=== PATIENT | female | born 1945 | race Caucasian/White ===

== ENCOUNTER 2017-09-26 05:45 | Emergency (ER) | payer MEDICARE, OTHER, MEDICAID ==
[2017-09-26 05:51] VITALS: BP 130/60
[2017-09-26] MEDS ORDERED: HYDROmorphone 1 MG/ML Syringe IVPUSH ONE ×2 (06:01→06:28)
[2017-09-26] MEDS ORDERED: Sodium Chloride 0.9% 10 ML Syringe FLUSH PRN (06:02)
[2017-09-26] MEDS ORDERED: oxyCODONE 5 MG Tab PO ONE (07:06)
--- NOTE | 2017-09-27 00:09 | EDM.PDOC ---
ED HPI GENERAL MEDICAL PROBLEM - General Chief Complaint: Upper Extremity Injury/Pain Stated Complaint: left wrist pain Time Seen by Provider: 09/26/17 05:58 Source of Information: Reports: Patient, EMS History Limitations: Reports: No Limitations - History of Present Illness INITIAL COMMENTS - FREE TEXT/NARRATIVE: States she fell getting to use the bathroom, injuring her L wrist. She denies striking her head. Denies any neck pain. States that her only discomfort is located in her L wrist. Pt. states that she has a history of osteoporosis and frequent falls. She has sustained fractures to her humerus in the past as well. She states that she has had numerous joint replacements as well. She states that she is experiencing muscle spasms in her L hand. She is a heavy utilizer of opiates for her chronic medical conditions such as fibromyalgia. Location: Reports: Upper Extremity, Left Quality: Reports: Throbbing Severity: Severe Improves with: Reports: Rest Worsens with: Reports: Movement Treatments BUSHEL GIRL: Reports: Other Medication(s) (took oxycodone prior to calling 911) Left Arm Pain Score (Numeric/FACES): 10 - Related Data Allergies Allergy/AdvReac Type Severity Reaction Status Date / Time salsalate [Salsalate] Allergy Other Verified 09/26/17 22:39 codeine AdvReac Nausea and Verified 09/26/17 22:39 Vomiting cyclobenzaprine HCl AdvReac Fatigue Verified 09/26/17 22:39 [From Flexeril] fentanyl AdvReac Nausea and Verified 09/26/17 22:39 Vomiting Sulfa (Sulfonamide AdvReac Body Aches Verified 09/26/17 22:39 Antibiotics) Home Meds: Home Meds Calcium Carb/Mag Ox/Zinc Gluc [Epgwsix-Duxnccvql-Ihws] 1 each PO DAILY 11/11/13 [History] Carbidopa/Levodopa [Carbidopa-Levo ER 25-100] 1 tab PO BEDTIME 11/11/13 [History ] Cholecalciferol (Vitamin D3) [Vitamin D3] 1,000 units PO DAILY 11/11/13 [History ] Diltiazem IR [Cardizem] 30 mg PO TID 11/11/13 [History] Fluticasone Propionate [Flonase] 16 gm .XX DAILY 11/11/13 [History] Furosemide [Lasix] 40 mg PO DAILY 11/11/13 [History] Gabapentin [Neurontin] 100 mg PO BID 11/11/13 [History] Gabapentin [Neurontin] 300 mg PO BEDTIME 11/11/13 [History] Menthol/Methyl Salicylate [Thera-Gesic Analgesic Cream] 1 applic TOP TID PRN [History] Metoprolol Succinate [Toprol XL] 25 mg PO DAILY 11/11/13 [History] Omeprazole 20 mg PO ACBREAKFAST 11/11/13 [History] metFORMIN [Glucophage] 500 mg PO BIDM 11/11/13 [History] Aspirin [Halfprin] 81 mg PO DAILY #0 11/24/13 [Rx] Fish Oil/[place]-3 Fatty Acids [Fish Oil] 1 cap PO DAILY 01/22/15 [History] DULoxetine [Cymbalta] 60 mg PO BID 03/19/15 [History] Flaxseed Oil [Flaxseed] 1,000 mg PO DAILY 03/19/15 [History] Fluticasone Propionate [Fluticasone Propionate [place]] 16 gm .XX BEDTIME PRN 02/26 [History] Pravastatin Sodium [Pravastatin (Pravachol)] 40 mg PO BEDTIME 03/19/15 [History] Nitroglycerin [IJP: Nitroglycerin] 0.4 mg SL ASDIRECTED PRN 04/23/16 [History] Nortriptyline 25 mg PO BEDTIME 04/23/16 [History] Zinc Gluconate-Zinc Picolinate [Zinc] 30 mg PO DAILY 04/23/16 [History] oxyCODONE 10 mg PO BID PRN 04/23/16 [History] Acetaminophen [Tylenol Extra Strength] 2 tab PO Q8H PRN 04/24/16 [History] Ondansetron HCl [Zofran] 4 mg PO TID PRN 09/26/17 [History] rOPINIRole HCl [Requip] 0.25 mg PO BEDTIME 09/26/17 [History] Past Medical History HEENT History: Reports: Allergic Rhinitis, Macular Degeneration Cardiovascular History: Reports: Angina, Heart Failure, High Cholesterol, Hypertension, SOB on Exertion Other Cardiovascular History: VENOUS INSUFFICIENCY, LOWER EXTREMITIES. MURMER. MITRAL REGURGITATION. 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 ESOPHAGEAL DYSMOTILITY. 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 SHOULDER JOINT DISLOCATION. COMPLICATION OF INTERNAL ORTHOPEDIC PROSTHETIC DEVICE, IMPLANT, OR GRAFT. RIGHT SHOULDER PAIN. ARTHRALGIA OF TEMPOROMANDIBULAR JOINT. MUSCLE CRAMPS. CHRONIC PAIN SYNDROME Neurological History: Reports: Neuropathy, Diabetic Other Neuro History: RLS Psychiatric History: Reports: Anxiety, Depression Other Psychiatric History: MILD COGNITIVE IMPAIRMENT Endocrine/Metabolic History: Reports: Diabetes, Type II, Obesity/BMI 30+ Hematologic History: Reports: None Immunologic History: Reports: None Oncologic (Cancer) History: Reports: Basal Cell Carcinoma Other Dermatologic History: HX cellulitis to Left shoulder - Past Surgical History Head Surgeries/Procedures: Reports: None HEENT Surgical History: Reports: Cataract Surgery Musculoskeletal Surgical History: Reports: Hip Replacement, Joint Replacement, Knee Replacement, Shoulder Surgery Dermatological Surgical History: Reports: Skin Biopsy Social & Family History - Tobacco Use Smoking Status *Q: Former Smoker Years of Tobacco use: 15 Used Tobacco, but Quit: Yes Month Tobacco Last Used: 604 Second Hand Smoke Exposure: No - Recreational Drug Use Recreational Drug Use: No Drug Use in Last 12 Months: No Review of Systems - Review of Systems Review Of Systems: See Below Constitutional: Reports: No Symptoms Eyes: Reports: No Symptoms, Blurred Vision, Vision Change Ears: Reports: No Symptoms, Dizziness, Tinnitus Nose: Reports: No Symptoms Mouth/Throat: Reports: No Symptoms Respiratory: Reports: No Symptoms Cardiovascular: Reports: No Symptoms. Denies: Chest Pain, Edema, Irregular Heart Rate, Lightheadedness GI/Abdominal: Reports: No Symptoms Musculoskeletal: Reports: Joint Pain (left wrist) Skin: Reports: No Symptoms Neurological: Reports: No Symptoms ED EXAM, GENERAL - Physical Exam Exam: See Below Exam Limited By: No Limitations General Appearance: Alert, WD/WN Head: Atraumatic, Normocephalic Neck: Normal Inspection, Supple, Non-Tender, Full Range of Motion Respiratory/Chest: No Respiratory Distress, Lungs Clear, Normal Breath Sounds, No Accessory Muscle Use, Chest Non-Tender Cardiovascular: Normal Peripheral Pulses, Regular Rate, Rhythm, No Edema, No Gallop, No JVD, No Murmur, No Rub GI/Abdominal: Normal Bowel Sounds, Soft, Non-Tender, No Organomegaly, No Distention, No Abnormal Bruit, No Mass Extremities: Normal Inspection, Arm Pain, Other (deformity to L wrist) Neurological: Alert, Oriented, CN II-XII Intact, Normal Cognition, Normal Gait, Normal Reflexes, No Motor/Sensory Deficits Skin Exam: Warm, Dry, Intact, Normal Color, No Rash Course - Vital Signs Last Recorded V/S: Last Vital Signs Temp 36.8 C 09/26/17 05:48 Pulse 83 09/26/17 05:48 Resp 20 09/26/17 05:48 BP 130/60 09/26/17 05:48 Pulse Ox 96 09/26/17 05:48 - Orders/Labs/Meds Orders: Active Orders 24 hr Category Date Time Status Wrist 2V Lt [CR] Stat Exams 09/26/17 06:31 Taken Wrist Comp Min 3V Lt [CR] Stat Exams 09/26/17 06:00 Taken Peripheral IV Insertion Adult [OM.PC] Routine Oth 09/26/17 06:03 Ordered Meds: Medications Discontinued Medications Generic Name Dose Route Start Last Admin Trade Name Freq PRN Reason Stop Dose Admin Hydromorphone HCl 1 mg 09/26/17 06:01 09/26/17 06:07 Dilaudid IVPUSH 09/26/17 06:02 1 mg ONETIME ONE Administration Hydromorphone HCl 1 mg 09/26/17 06:28 09/26/17 06:37 Dilaudid IVPUSH 09/26/17 06:29 1 mg ONETIME ONE Administration Oxycodone HCl 10 mg 09/26/17 07:06 09/26/17 07:13 Oxycodone PO 09/26/17 07:07 10 mg ONETIME ONE Administration Sodium Chloride 10 ml 09/26/17 06:02 Saline Flush FLUSH ASDIRECTED PRN Keep Vein Open Departure - Departure Time of Disposition: 06:15 Disposition: Home, Self-Care 01 Condition: Good Clinical Impression: Radius fracture - Discharge Information Instructions: Wrist Fracture Treated With Immobilization, [id number] Referrals: PCP,Unobtain [Primary Care Provider] - Forms: ED Department Discharge Additional Instructions: Follow-up with [facility] next week ([phone]). I spoke with Dr. Arriaga who wants you to follow-up. Increase oxycodone to 1-2 tablets every 4-6 hours as needed for pain. Keep splint on. - My Orders Last 24 Hours: My Active Orders 09/26/17 06:00 Wrist Comp Min 3V Lt [CR] Stat 09/26/17 06:03 Peripheral IV Insertion Adult [OM.PC] Routine 09/26/17 06:31 Wrist 2V Lt [CR] Stat - Assessment/Plan Last 24 Hours: My Active Orders 09/26/17 06:00 Wrist Comp Min 3V Lt [CR] Stat 09/26/17 06:03 Peripheral IV Insertion Adult [OM.PC] Routine 09/26/17 06:31 Wrist 2V Lt [CR] Stat
== END 2017-09-26 07:50 | disposition home or self-care (01) ==
LOC: VM.ED 05:45
DX: S52.502A Unspecified fracture of the lower end of left radius, initial encounter for closed fracture (principal); I11.0 Hypertensive heart disease with heart failure; I50.9 Heart failure, unspecified; E78.00 Pure hypercholesterolemia, unspecified; E11.9 Type 2 diabetes mellitus without complications; E66.9 Obesity, unspecified; Z87.891 Personal history of nicotine dependence; Z88.2 Allergy status to sulfonamides; Z88.8 Allergy status to other drugs, medicaments and biological substances; Z79.899 Other long term (current) drug therapy; Z79.82 Long term (current) use of aspirin; W19.XXXA Unspecified fall, initial encounter
CPT/HCPCS: 29125; 73100; 73110; 96374; 96376; 99284; A9270; J1170

== ENCOUNTER 2017-09-26 22:31 | Emergency (ER) | payer MEDICARE, OTHER, MEDICAID ==
[2017-09-26 22:39] VITALS: BP 156/64
[2017-09-26] MEDS ORDERED: oxyCODONE 5 MG Tab PO ONE (23:09)
[2017-09-26] MEDS ORDERED: Ondansetron 4 MG Tab.DIS PO ONE (23:10)
--- NOTE | 2017-09-26 23:54 | EDM.PDOC ---
ED HPI GENERAL MEDICAL PROBLEM - General Chief Complaint: Upper Extremity Injury/Pain Stated Complaint: uncontrolled pain Time Seen by Provider: 09/26/17 22:50 Source of Information: Reports: Patient History Limitations: Reports: No Limitations - History of Present Illness INITIAL COMMENTS - FREE TEXT/NARRATIVE: Pt. presents to the ER with continued L wrist pain. Pt. states that she has been taking 25 mg. of oxycodone every 4 hours and she is not having any improvement in her discomfort. Pt. sustained a distal radius fracture of her L wrist that was extremely ustable with dislocation. Attempt to reduce the wrist was difficult due to instablility of the fracture. Pt. has been placed in a posterior short arm fiberglas splint. Pt. takes oxycodone throughout the day for chronic pain issues. She was discharged from ER this AM and her oral oxycodone was increased to 20mg every 4 hours. Pt. states that her pain was intolerable and never improved to less than "9" on 1-10 severity scale. Pt. subsequently presents back to the ER with compaints of continued pain. She had called ER several times today with concerns about her continued pain. Left Wrist Pain Score (Numeric/FACES): 9 - Related Data Allergies Allergy/AdvReac Type Severity Reaction Status Date / Time salsalate [Salsalate] Allergy Other Verified 09/26/17 22:39 codeine AdvReac Nausea and Verified 09/26/17 22:39 Vomiting cyclobenzaprine HCl AdvReac Fatigue Verified 09/26/17 22:39 [From Flexeril] fentanyl AdvReac Nausea and Verified 09/26/17 22:39 Vomiting Sulfa (Sulfonamide AdvReac Body Aches Verified 09/26/17 22:39 Antibiotics) Home Meds: Home Meds Calcium Carb/Mag Ox/Zinc Gluc [Uuaajri-Vxekcoluv-Eadz] 1 each PO DAILY 11/11/13 [History] Carbidopa/Levodopa [Carbidopa-Levo ER 25-100] 1 tab PO BEDTIME 11/11/13 [History ] Cholecalciferol (Vitamin D3) [Vitamin D3] 1,000 units PO DAILY 11/11/13 [History ] Diltiazem IR [Cardizem] 30 mg PO TID 11/11/13 [History] Fluticasone Propionate [Flonase] 16 gm .XX DAILY 11/11/13 [History] Furosemide [Lasix] 40 mg PO DAILY 11/11/13 [History] Gabapentin [Neurontin] 100 mg PO BID 11/11/13 [History] Gabapentin [Neurontin] 300 mg PO BEDTIME 11/11/13 [History] Menthol/Methyl Salicylate [Thera-Gesic Analgesic Cream] 1 applic TOP TID PRN [History] Metoprolol Succinate [Toprol XL] 25 mg PO DAILY 11/11/13 [History] Omeprazole 20 mg PO ACBREAKFAST 11/11/13 [History] metFORMIN [Glucophage] 500 mg PO BIDM 11/11/13 [History] Aspirin [Halfprin] 81 mg PO DAILY #0 11/24/13 [Rx] Fish Oil/[place]-3 Fatty Acids [Fish Oil] 1 cap PO DAILY 01/22/15 [History] DULoxetine [Cymbalta] 60 mg PO BID 03/19/15 [History] Flaxseed Oil [Flaxseed] 1,000 mg PO DAILY 03/19/15 [History] Fluticasone Propionate [Fluticasone Propionate [place]] 16 gm .XX BEDTIME PRN 02/26 [History] Pravastatin Sodium [Pravastatin (Pravachol)] 40 mg PO BEDTIME 03/19/15 [History] Nitroglycerin [IJP: Nitroglycerin] 0.4 mg SL ASDIRECTED PRN 04/23/16 [History] Nortriptyline 25 mg PO BEDTIME 04/23/16 [History] Zinc Gluconate-Zinc Picolinate [Zinc] 30 mg PO DAILY 04/23/16 [History] oxyCODONE 10 mg PO BID PRN 04/23/16 [History] Acetaminophen [Tylenol Extra Strength] 2 tab PO Q8H PRN 04/24/16 [History] Ondansetron HCl [Zofran] 4 mg PO TID PRN 09/26/17 [History] rOPINIRole HCl [Requip] 0.25 mg PO BEDTIME 09/26/17 [History] Past Medical History HEENT History: Reports: Allergic Rhinitis, Macular Degeneration Cardiovascular History: Reports: Angina, Heart Failure, High Cholesterol, Hypertension, SOB on Exertion Other Cardiovascular History: VENOUS INSUFFICIENCY, LOWER EXTREMITIES. MURMER. MITRAL REGURGITATION. 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 ESOPHAGEAL DYSMOTILITY. TUBULAR ADENOMA OF COLON Genitourinary History: Reports: Urinary Incontinence Other Genitourinary History: DYSURIA REHABILITATION TECH History: Reports: Musculoskeletal History: Reports: Arthritis, Back Pain, Chronic, Fracture, Fibromyalgia, Osteoarthritis Other Musculoskeletal History: ROTATER CUFF TEAR. SHOULDER JOINT DISLOCATION. COMPLICATION OF INTERNAL ORTHOPEDIC PROSTHETIC DEVICE, IMPLANT, OR GRAFT. RIGHT SHOULDER PAIN. ARTHRALGIA OF TEMPOROMANDIBULAR JOINT. MUSCLE CRAMPS. CHRONIC PAIN SYNDROME Neurological History: Reports: Neuropathy, Diabetic Other Neuro History: RLS Psychiatric History: Reports: Anxiety, Depression Other Psychiatric History: MILD COGNITIVE IMPAIRMENT Endocrine/Metabolic History: Reports: Diabetes, Type II, Obesity/BMI 30+ Hematologic History: Reports: None Immunologic History: Reports: None Oncologic (Cancer) History: Reports: Basal Cell Carcinoma Other Dermatologic History: HX cellulitis to Left shoulder - Past Surgical History Head Surgeries/Procedures: Reports: None HEENT Surgical History: Reports: Cataract Surgery Musculoskeletal Surgical History: Reports: Hip Replacement, Joint Replacement, Knee Replacement, Shoulder Surgery Dermatological Surgical History: Reports: Skin Biopsy Social & Family History - Tobacco Use Smoking Status *Q: Former Smoker Years of Tobacco use: 15 Used Tobacco, but Quit: Yes Month Tobacco Last Used: 22 years Second Hand Smoke Exposure: No - Recreational Drug Use Recreational Drug Use: No Drug Use in Last 12 Months: No Review of Systems - Review of Systems Review Of Systems: See Below Constitutional: Reports: No Symptoms Eyes: Reports: No Symptoms Ears: Reports: No Symptoms Nose: Reports: No Symptoms Mouth/Throat: Reports: No Symptoms Respiratory: Reports: No Symptoms Cardiovascular: Reports: No Symptoms GI/Abdominal: Reports: No Symptoms Genitourinary: Reports: No Symptoms Musculoskeletal: Reports: Hand Pain, Joint Pain (L wrist) Skin: Reports: No Symptoms Neurological: Reports: No Symptoms Psychiatric: Reports: No Symptoms ED EXAM, GENERAL - Physical Exam Exam: See Below Exam Limited By: No Limitations General Appearance: Alert, WD/WN, No Apparent Distress Nose: Normal Inspection, Normal Mucosa, No Blood Throat/Mouth: Normal Inspection, Normal Teeth, Normal Oropharynx, No Airway Compromise Head: Atraumatic, Normocephalic Neck: Normal Inspection, Supple, Non-Tender Respiratory/Chest: No Respiratory Distress, Lungs Clear, Normal Breath Sounds, No Accessory Muscle Use, Chest Non-Tender Cardiovascular: Normal Peripheral Pulses, Regular Rate, Rhythm, No Edema, No Gallop, No JVD, No Murmur, No Rub Neurological: Alert, Oriented, CN II-XII Intact, Normal Reflexes, No Motor/ Sensory Deficits Skin Exam: Warm, Dry, Intact, Normal Color Course - Vital Signs Last Recorded V/S: Last Vital Signs Temp 36.9 C 09/26/17 22:33 Pulse 86 09/26/17 22:33 Resp 18 09/26/17 22:33 BP 156/64 H 09/26/17 22:33 Pulse Ox 93 L 09/26/17 22:33 - Orders/Labs/Meds Meds: Medications Discontinued Medications Generic Name Dose Route Start Last Admin Trade Name Arden PRN Reason Stop Dose Admin Ondansetron HCl 4 mg 09/26/17 23:10 09/26/17 23:14 Zofran Odt PO 09/26/17 23:11 4 mg ONETIME ONE Administration Oxycodone HCl 20 mg 09/26/17 23:09 09/26/17 23:14 Oxycodone PO 09/26/17 23:10 20 mg ONETIME ONE Administration Departure - Departure Time of Disposition: 22:30 Disposition: DC/Tfer to Acute Hospital 02 Clinical Impression: Fracture of radius - Discharge Information Instructions: Radial Head Fracture, [id number] Referrals: Claritza Wilder DO [Primary Care Provider] - Forms: ED Department Discharge, Interfacility Transfer MADDIE Additional Instructions: Travel to the [facility] in [place] for direct admission. She will be a direct admit to room 505.
== END 2017-09-26 23:28 | disposition short-term general hospital (02) ==
LOC: VM.ED 22:31
DX: S52.92XA Unspecified fracture of left forearm, initial encounter for closed fracture (principal); I11.0 Hypertensive heart disease with heart failure; I50.9 Heart failure, unspecified; E78.00 Pure hypercholesterolemia, unspecified; K21.9 Gastro-esophageal reflux disease without esophagitis; E11.40 Type 2 diabetes mellitus with diabetic neuropathy, unspecified; E66.9 Obesity, unspecified; Z88.5 Allergy status to narcotic agent; Z88.8 Allergy status to other drugs, medicaments and biological substances; Z88.2 Allergy status to sulfonamides; Z79.899 Other long term (current) drug therapy; Z79.82 Long term (current) use of aspirin; Z87.891 Personal history of nicotine dependence; X58.XXXA Exposure to other specified factors, initial encounter; S52.502A Unspecified fracture of the lower end of left radius, initial encounter for closed fracture; E11.9 Type 2 diabetes mellitus without complications; W19.XXXA Unspecified fall, initial encounter
CPT/HCPCS: 99284; A9270; 29125; 73100-LT; 73110-LT; 96374; 96376; J1170

== ENCOUNTER 2017-09-30 10:43 | Inpatient (IN) | payer MEDICARE, OTHER, MEDICAID ==
[2017-09-30] MEDS ORDERED: Gabapentin 100 MG Cap PO SCH (11:30)
[2017-09-30] MEDS ORDERED: Ondansetron 4 MG Tab.DIS PO PRN (12:00)
--- NOTE | 2017-09-30 12:10 | PCM.HP ---
H&P History of Present Illness - General Date of Service: 09/30/17 Admit Problem/Dx: Admission Diagnosis/Problem Admission Diagnosis/Problem Left wrist fracture Source of Information: Patient History Limitations: Reports: No Limitations - History of Present Illness Initial Comments - Free Text/Narative: Mrs. Khan is a 72 yo female who is admitted today for swing bed rehabilitation related to a left wrist fracture. She had initially presented to the ER here on 09/26/17 for evaluation of left wrist pain and deformity following a mechanical fall at home. She states that she has had periodic dizzy episodes chronically and was experiencing an episode like that when she lost her balance and fell backwards landing on her outstretched left arm. No LOC or other injuries. She underwent closed reduction in the ER and then was transferred to [place] for further evaluation. She subsequently underwent ORIF by hand surgery. Her postoperative course was uneventful. Pain control had been an issue but is better now. She was felt medically stable for dismissal but will require assistance with ADL's and strengthening; therefore, she is admitted for swing bed here. She reports her pain is well controlled at this time. She had some numbness of the fingers on the left hand but this is improving and really is only involving the index finger now. Normal movement and color of the fingers. She has been having regular bowel movements without any issues. She denies any other symptoms and is otherwise feeling well. - Related Data Allergies/Adverse Reactions: Allergies Allergy/AdvReac Type Severity Reaction Status Date / Time salsalate [Salsalate] Allergy Other Verified 09/26/17 22:39 codeine AdvReac Nausea and Verified 09/26/17 22:39 Vomiting cyclobenzaprine HCl AdvReac Fatigue Verified 09/26/17 22:39 [From Flexeril] fentanyl AdvReac Nausea and Verified 09/26/17 22:39 Vomiting Sulfa (Sulfonamide AdvReac Body Aches Verified 09/26/17 22:39 Antibiotics) Home Medications: Home Meds Calcium Carb/Mag Ox/Zinc Gluc [Anumfiw-Koeiktsoq-Eajv] 1 each PO QID 11/11/13 [ History] Carbidopa/Levodopa [Carbidopa-Levo ER 25-100] 1 tab PO BEDTIME 11/11/13 [History ] Cholecalciferol (Vitamin D3) [Vitamin D3] 1,000 units PO DAILY 11/11/13 [History ] Diltiazem IR [Cardizem] 30 mg PO TID 11/11/13 [History] Fluticasone Propionate [Flonase] 1 spray DELORES DAILY 11/11/13 [History] Furosemide [Lasix] 40 mg PO DAILY 11/11/13 [History] Gabapentin [Neurontin] 100 mg PO BID 11/11/13 [History] Gabapentin [Neurontin] 300 mg PO BEDTIME 11/11/13 [History] Metoprolol Succinate [Toprol XL] 25 mg PO DAILY 11/11/13 [History] Omeprazole 20 mg PO ACBREAKFAST 11/11/13 [History] metFORMIN [Glucophage] 500 mg PO BIDM 11/11/13 [History] Aspirin [Halfprin] 81 mg PO DAILY #0 11/24/13 [Rx] Fish Oil/[place]-3 Fatty Acids [Fish Oil] 1 cap PO DAILY 01/22/15 [History] DULoxetine [Cymbalta] 60 mg PO BID 03/19/15 [History] Flaxseed Oil [Flaxseed] 1,000 mg PO DAILY 03/19/15 [History] Fluticasone Propionate [Fluticasone Propionate [place]] 1 spray DELORES BEDTIME PRN [History] Pravastatin Sodium [Pravastatin (Pravachol)] 40 mg PO BEDTIME 03/19/15 [History] Nitroglycerin [IJP: Nitroglycerin] 0.4 mg SL ASDIRECTED PRN 04/23/16 [History] Nortriptyline 25 mg PO BEDTIME 04/23/16 [History] oxyCODONE 10 mg PO BID PRN 04/23/16 [History] Acetaminophen [Tylenol Extra Strength] 2 tab PO Q8H 04/24/16 [History] Ondansetron HCl [Zofran] 4 mg PO TID PRN 09/26/17 [History] rOPINIRole HCl [Requip] 0.25 mg PO BEDTIME 09/26/17 [History] Ferrous Sulfate [Iron] 325 mg PO DAILY 09/30/17 [History] Methyl Salicylate/Menthol [Thera-Gesic Analgesic] 1 applic TOP TID PRN 09/30/17 [History] Past Medical History HEENT History: Reports: Allergic Rhinitis, Macular Degeneration Cardiovascular History: Reports: Heart Failure, High Cholesterol, Hypertension Other Cardiovascular History: MITRAL REGURGITATION. 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 ESOPHAGEAL DYSMOTILITY. TUBULAR ADENOMA OF COLON Genitourinary History: Reports: Urinary Incontinence EMERGENCY MANAGER History: Reports: Musculoskeletal History: Reports: Arthritis, Back Pain, Chronic, Fracture, Fibromyalgia, Osteoarthritis Neurological History: Reports: Neuropathy, Diabetic Other Neuro History: RLS Psychiatric History: Reports: Anxiety, Depression Other Psychiatric History: MILD COGNITIVE IMPAIRMENT Endocrine/Metabolic History: Reports: Diabetes, Type II, Obesity/BMI 30+ Hematologic History: Reports: None Immunologic History: Reports: None Oncologic (Cancer) History: Reports: Basal Cell Carcinoma Other Dermatologic History: HX cellulitis to Left shoulder - Infectious Disease History Infectious Disease History: Reports: Chicken Pox - Past Surgical History Head Surgeries/Procedures: Reports: None HEENT Surgical History: Reports: Cataract Surgery Cardiovascular Surgical History: Reports: None Respiratory Surgical History: Reports: None GI Surgical History: Reports: Appendectomy, Colonoscopy Female Surgical History: Reports: None Endocrine Surgical History: Reports: None Musculoskeletal Surgical History: Reports: Hip Replacement, Joint Replacement, Knee Replacement, ORIF, Shoulder Replacement, Shoulder Surgery Dermatological Surgical History: Reports: Skin Biopsy Social & Family History - Family History GI: Reports: Cirrhosis Neurological: Reports: Alzheimers Disease Psychiatric: Reports: Depression, Other (See Below) (Alcohol abuse) - Tobacco Use Smoking Status *Q: Former Smoker Years of Tobacco use: 15 Used Tobacco, but Quit: No Month Tobacco Last Used: 22 years Second Hand Smoke Exposure: No - Caffeine Use Caffeine Use: Reports: Coffee, Tea - Alcohol Use Alcohol Use History: No Alcohol Use in Last Twelve Months: No - Recreational Drug Use Recreational Drug Use: No Drug Use in Last 12 Months: No - Living Situation & Occupation Living situation: Reports: , Alone (in senior apartments) Occupation: Retired H&P Review of Systems - Review of Systems: Review Of Systems: See Below General: Reports: No Symptoms HEENT: Reports: No Symptoms Pulmonary: Reports: No Symptoms Cardiovascular: Reports: No Symptoms Gastrointestinal: Reports: No Symptoms Genitourinary: Reports: No Symptoms Skin: Reports: No Symptoms Neurological: Reports: No Symptoms Exam - Exam Exam: See Below - Vital Signs Vital Signs: Last Vital Signs Temp 36.8 C 09/30/17 10:50 Pulse 82 09/30/17 10:50 Resp 16 09/30/17 10:50 BP 144/59 H 09/30/17 10:50 Pulse Ox 95 09/30/17 10:50 Weight: 98.157 kg - Exam General: Alert, Cooperative HEENT: Conjunctiva Clear, Mucosa Moist & [place], Pupils Equal, Pupils Reactive Neck: Supple, Trachea Midline. No: Lymphadenopathy, Thyromegaly Lungs: Clear to Auscultation, Normal Respiratory Effort Cardiovascular: Regular Rate, Regular Rhythm, Normal S1, Normal S2, Systolic Murmur GI/Abdominal Exam: Normal Bowel Sounds, Soft, Non-Tender, No Organomegaly, No Distention, No Mass Extremities: Non-Tender, No Pedal Edema, Normal Capillary Refill, Other (left wrist with pins and dressing in place appearing clean/dry/intact; left fingers normal in appearance with normal mobility; sensation of index finger present but diminished compared to other fingers) Skin: Warm, Dry, Intact *Q Meaningful Use (ADM) - VTE *Q VTE Criteria *Q: VTE Pharmacological Contraindications *Q: Risk of Bleeding - Stroke *Q Stroke Criteria *Q: - AMI *Q AMI Criteria *Q: - Problem List (1) Wrist fracture, left SNOMED Code(s): 412985483 ICD Code: S62.102A - FRACTURE OF UNSP CARPAL BONE, LEFT WRIST, INIT FOR CLOS FX Status: Acute Current Visit: Yes Problem Details: - Patient is doing fairly well. Follow-ups are scheduled in [place]. - Instructions say no tub bath until instructed; therefore, will do sponge baths only for now. - She was weaned down to her usual oxycodone dosing before discharge and this will be continued. Will increase frequency as needed to keep her pain under control. - Tylenol continued. - OT and PT consults for evaluation and management. Qualifiers: Encounter type: sequela Fracture type: closed Qualified Code(s): S62.102S - Fracture of unspecified carpal bone, left wrist, sequela (2) Hypertension SNOMED Code(s): 03410613 ICD Code: I10 - ESSENTIAL (PRIMARY) HYPERTENSION Status: Chronic Current Visit: Yes Problem Details: - Home medications will be continued. Qualifiers: Hypertension type: essential hypertension Qualified Code(s): I10 - Essential (primary) hypertension (3) CHF (congestive heart failure) SNOMED Code(s): 25796668 ICD Code: I50.9 - HEART FAILURE, UNSPECIFIED Status: Chronic Current Visit: Yes Problem Details: - No acute symptoms. - Home medications will be continued. Qualifiers: Congestive heart failure type: diastolic Congestive heart failure chronicity: chronic Qualified Code(s): I50.32 - Chronic diastolic (congestive ) heart failure (4) Obstructive sleep apnea SNOMED Code(s): 62572431 ICD Code: G47.33 - OBSTRUCTIVE SLEEP APNEA (ADULT) (PEDIATRIC) Status: Chronic Current Visit: Yes Problem Details: - Continue CPAP per home settings. (5) Hyperlipidemia SNOMED Code(s): 40630685 ICD Code: E78.5 - HYPERLIPIDEMIA, UNSPECIFIED Status: Chronic Current Visit: Yes Problem Details: - Continue home medications. Qualifiers: Hyperlipidemia type: unspecified Qualified Code(s): E78.5 - Hyperlipidemia , unspecified (6) Diabetes SNOMED Code(s): 37190848 ICD Code: E11.9 - TYPE 2 DIABETES MELLITUS WITHOUT COMPLICATIONS Status: Chronic Current Visit: Yes Problem Details: - Continue metformin. - Will not monitor her glucoses since she is on metformin only. Qualifiers: Diabetes mellitus type: type 2 Diabetes mellitus complication status: with neurologic complications Diabetes mellitus complication detail: with polyneuropathy (7) Depression with anxiety SNOMED Code(s): 793346568 ICD Code: F41.8 - OTHER SPECIFIED ANXIETY DISORDERS Status: Chronic Current Visit: Yes Problem Details: - Continue home medications. (8) Restless leg syndrome SNOMED Code(s): 55029246 ICD Code: G25.81 - RESTLESS LEGS SYNDROME Status: Chronic Current Visit: Yes Problem Details: - Continue home medications. (9) Fibromyalgia SNOMED Code(s): 081456683 ICD Code: M79.7 - FIBROMYALGIA Status: Chronic Current Visit: Yes Problem Details: - She doses her gabapentin somewhat atypical and in a way that would be difficult to match in the hospital. - She does not like taking 300 mg at once at bedtime due to side effects and prefers lower dosing over this. Therefore, will do 100 mg in the morning, at supper, and at bedtime. (10) Esophageal dysmotility SNOMED Code(s): 174218605 ICD Code: K22.4 - DYSKINESIA OF ESOPHAGUS Status: Chronic Current Visit: Yes Problem Details: - Continue diltiazem. Problem List Initiated/Reviewed/Updated: Yes Orders Last 24hrs: Active Orders 24 hr Category Date Time Status Patient Status [ADT] Routine ADT 09/30/17 10:43 Active Notify Provider Vital Signs [RC] ASDIRECTED Care 09/30/17 11:25 Ordered Oxygen Therapy [RC] PRN Care 09/30/17 11:24 Ordered Sponge Bath [Bathe Patient] [RC] ASDIRECTED Care 09/30/17 11:28 Ordered Up With Assistance [RC] ASDIRECTED Care 09/30/17 11:24 Ordered VTE/DVT Education [RC] PER UNIT ROUTINE Care 09/30/17 11:24 Ordered Vital Signs [RC] PER UNIT ROUTINE Care 09/30/17 11:24 Ordered OT Evaluation and Treatment [CONS] Routine Cons 09/30/17 11:24 Ordered PT Evaluation and Treatment [CONS] Routine Cons 09/30/17 11:24 Ordered [employer] Diet [DIET] Diet 09/30/17 Lunch Ordered Acetaminophen [Tylenol Extra Strength] Med 09/30/17 11:30 Ordered 2 tab PO Q8H Aspirin [Halfprin] Med 10/01/17 08:00 Ordered 81 mg PO DAILY Calcium Carb/Mag Ox/Zinc Gluc [Gjghxey-Pcnqxzdhu-Wjve] Med 09/30/17 12:00 Ordered 1 each PO QID Carbidopa/Levodopa [Sinemet Cr 25-100 mg] Med 09/30/17 20:00 Ordered 1 tab PO BEDTIME Cholecalciferol (Vitamin D3) [Vitamin D3] Med 10/01/17 08:00 Ordered 1,000 units PO DAILY DULoxetine [Cymbalta] Med 09/30/17 20:00 Ordered 60 mg PO BID Diltiazem IR [Cardizem] Med 09/30/17 12:00 Ordered 30 mg PO TID Ferrous Sulfate Med 10/01/17 08:00 Ordered 325 mg PO DAILY Flaxseed Oil [Flaxseed] Med 10/01/17 08:00 Ordered 1,000 mg PO DAILY Furosemide [Lasix] Med 10/01/17 08:00 Ordered 40 mg PO DAILY Gabapentin [Neurontin] Med 09/30/17 11:30 Ordered 100 mg PO ASDIRECTED Metoprolol Succinate [Toprol XL] Med 10/01/17 08:00 Ordered 25 mg PO DAILY Nortriptyline Med 09/30/17 20:00 Ordered 25 mg PO BEDTIME Omeprazole Med 10/01/17 07:00 Ordered 20 mg PO ACBREAKFAST Ondansetron HCl Med 09/30/17 11:28 Ordered 4 mg PO TID PRN Pravastatin Sodium Med 09/30/17 20:00 Ordered 40 mg PO BEDTIME metFORMIN [Glucophage] Med 09/30/17 18:00 Ordered 500 mg PO BIDM oxyCODONE Med 09/30/17 11:28 Ordered 10 mg PO BID PRN rOPINIRole HCl [Requip] Med 09/30/17 20:00 Ordered 0.25 mg PO BEDTIME VTE Pharmacological Contraindications [AST] Per Unit Oth 09/30/17 11:24 Ordered Routine Resuscitation Status Routine Resus Stat 09/30/17 11:24 Ordered Medication Orders Acetaminophen (Tylenol Extra Strength) 1,000 mg PO Q8H [facility] Aspirin (Halfprin) 81 mg PO DAILY [facility] Carbidopa/Levodopa (Sinemet Cr 25-100 Mg) 1 tab PO BEDTIME [facility] Cholecalciferol (Vitamin D3) 1,000 units PO DAILY [facility] Diltiazem HCl (Cardizem) 30 mg PO TID [facility] Duloxetine HCl (Cymbalta) 60 mg PO BID [facility] Ferrous Sulfate (Ferrous Sulfate) 325 mg PO DAILY [facility] Furosemide (Lasix) 40 mg PO DAILY [facility] Gabapentin (Neurontin) 100 mg PO ASDIRECTED [facility] Metformin HCl (Glucophage) 500 mg PO BIDM [facility] Metoprolol Succinate (Toprol Xl) 25 mg PO DAILY [facility] Non-Formulary Medication (Calcium Carb/Mag Ox/Zinc Gluc [Ttgcvad-Dxqviiypo-Lenm] ) 1 each PO QID [facility] Non-Formulary Medication (Flaxseed Oil [Flaxseed]) 1,000 mg PO DAILY [facility] Nortriptyline HCl (Nortriptyline) 25 mg PO BEDTIME [facility] Omeprazole (Omeprazole) 20 mg PO ACBREAKFAST [facility] Ondansetron HCl (Zofran Odt) 4 mg PO TID PRN PRN Reason: NAUSEA Oxycodone HCl (Oxycodone) 10 mg PO BID PRN PRN Reason: Pain Ropinirole HCl (Requip) 0.25 mg PO BEDTIME [facility] Simvastatin (Zocor) 20 mg PO BEDTIME [facility] Assessment/Plan Comment:: 72 yo female admitted for swing bed cares following a hospitalization in [place] for ORIF of a left wrist fracture. Doing well. See problems above. Continue medications as per discharge med list. Patient does not require any VTE prophylaxis. She wishes to be full code. PT and OT consults; duration of swing bed stay at discretion of therapists.
[2017-09-30] MEDS: Acetaminophen 500 MG Tab PO SCH ×3 (12:23→18:56)
[2017-09-30] MEDS: oxyCODONE 5 MG Tab PO PRN ×2 (13:05→21:38)
[2017-09-30] MEDS: Diltiazem IR 30 MG Tab PO SCH ×2 (13:05→19:39)
[2017-09-30] MEDS: Gabapentin 100 MG Cap PO SCH ×2 (18:56→19:39)
[2017-09-30] MEDS: metFORMIN 500 MG Tab PO SCH (18:56)
[2017-09-30] MEDS: Nortriptyline 25 MG Cap PO SCH (19:38)
[2017-09-30] MEDS: rOPINIRole 0.5 MG Tab PO SCH (19:38)
[2017-09-30] MEDS: Carbidopa/Levodopa 25-100 MG Tab.ER PO SCH (19:38)
[2017-09-30] MEDS: DULoxetine 60 MG Cap PO SCH (19:39)
[2017-09-30] MEDS: Simvastatin 20 MG Tab PO SCH (19:40)
[2017-09-30] MEDS ORDERED: Gabapentin 300 MG Cap PO SCH (20:00)
[2017-10-01] MEDS: Acetaminophen 500 MG Tab PO SCH ×3 (03:04→20:08)
[2017-10-01] MEDS: Omeprazole 20 MG Cap.CR PO SCH (06:24)
[2017-10-01] MEDS ORDERED: FLAXSEED OIL 1000 MG PO SCH (08:00)
[2017-10-01] MEDS ORDERED: Gabapentin 100 MG Cap PO SCH (08:00)
[2017-10-01] MEDS: Gabapentin 100 MG Cap PO SCH ×3 (08:14→20:07)
[2017-10-01] MEDS: Ferrous Sulfate 325 MG Tab PO SCH (08:14)
[2017-10-01] MEDS: metFORMIN 500 MG Tab PO SCH ×2 (08:14→18:10)
[2017-10-01] MEDS: Cholecalciferol (Vitamin D3) 1,000 Unit Tab PO SCH (08:14)
[2017-10-01] MEDS: Diltiazem IR 30 MG Tab PO SCH ×3 (08:14→20:07)
[2017-10-01] MEDS: Aspirin 81 MG Tab.EC PO SCH (08:14)
[2017-10-01] MEDS: Metoprolol Succinate 25 MG Tab.ER PO SCH (08:14)
[2017-10-01] MEDS: DULoxetine 60 MG Cap PO SCH ×2 (08:15→20:07)
[2017-10-01] MEDS: oxyCODONE 5 MG Tab PO PRN ×2 (08:15→15:41)
[2017-10-01] MEDS: Furosemide 40 MG Tab PO SCH (08:15)
[2017-10-01] MEDS: Simvastatin 20 MG Tab PO SCH (20:07)
[2017-10-01] MEDS: Carbidopa/Levodopa 25-100 MG Tab.ER PO SCH (20:07)
[2017-10-01] MEDS: Nortriptyline 25 MG Cap PO SCH (20:07)
[2017-10-01] MEDS: rOPINIRole 0.5 MG Tab PO SCH (20:07)
[2017-10-02] MEDS: Acetaminophen 500 MG Tab PO SCH ×3 (03:20→22:16)
[2017-10-02] MEDS: oxyCODONE 5 MG Tab PO PRN ×3 (05:58→22:17)
[2017-10-02] MEDS: Omeprazole 20 MG Cap.CR PO SCH (06:00)
[2017-10-02] MEDS: Furosemide 40 MG Tab PO SCH (08:26)
[2017-10-02] MEDS: Diltiazem IR 30 MG Tab PO SCH ×3 (08:26→20:38)
[2017-10-02] MEDS: metFORMIN 500 MG Tab PO SCH ×2 (08:26→17:42)
[2017-10-02] MEDS: Metoprolol Succinate 25 MG Tab.ER PO SCH (08:27)
[2017-10-02] MEDS: Gabapentin 100 MG Cap PO SCH ×3 (08:27→20:39)
[2017-10-02] MEDS: Ferrous Sulfate 325 MG Tab PO SCH (08:28)
[2017-10-02] MEDS: DULoxetine 60 MG Cap PO SCH ×2 (08:28→20:39)
[2017-10-02] MEDS: Aspirin 81 MG Tab.EC PO SCH (08:28)
[2017-10-02] MEDS: Cholecalciferol (Vitamin D3) 1,000 Unit Tab PO SCH (08:28)
[2017-10-02] MEDS ORDERED: [UNRECOGNIZED DRUG - OTHER] TOP PRN (17:02)
[2017-10-02] MEDS: Simvastatin 20 MG Tab PO SCH (20:38)
[2017-10-02] MEDS: Carbidopa/Levodopa 25-100 MG Tab.ER PO SCH (20:38)
[2017-10-02] MEDS: rOPINIRole 0.5 MG Tab PO SCH (20:39)
[2017-10-02] MEDS: Nortriptyline 25 MG Cap PO SCH (20:39)
--- NOTE | 2017-10-02 23:29 | PN ---
Progress Note for KALEY MOON Date: 10/02/2017 Room #: VM.211 SUBJECTIVE: This is a 72-year-old seen today for followup on swing bed. The patient normally takes oxycodone twice daily for pain. She has broken her left humerus. She fell and had a distal radius fracture on the left requiring surgery. She is having quite a bit of pain in the middle of the day between her doses. She is taking Tylenol 3 times a day. Otherwise, she is working with PT, but more so will be working with OT next week. She is unable to dress herself. Family friend is in the room with her. She states other than the fracture things are going well. She does have some pins in place. Surgery was done on September 27. OBJECTIVE: Vital Signs: Today, her temperature is 98, pulse is 67, blood pressure is 141/54, respiratory rate 19, and O2 saturation of 94% on room air. General: She is in no acute distress. Heart: Regular rate and rhythm with murmur. Lungs: Lung sounds are clear to auscultation bilaterally without crackles or wheezes. Extremities: Warm and dry. No edema. Mental Status: She is alert. She is orientated x3. ASSESSMENT AND PLAN: Postoperative from a left distal radius fracture. No pin cares per Ortho. They will see her at her 2-week appointment in around 1 week and will do further fracture management at that time. I will increase her oxycodone at this point to 3 times a day p.r.n. I encouraged her to use ice, but she states it does hurt worse when it gets too cold. Otherwise, for her chronic comorbidities, we will continue her home medications for diabetes, diastolic heart failure, hypertension, fibromyalgia, depression, and anxiety. psych social worker is also involved for discharge planning. MKA: 10/02/2017 22:53:22 MODL: 10/02/2017 23:18:37 /[id number]
[2017-10-03] MEDS: oxyCODONE 5 MG Tab PO PRN ×3 (06:08→21:09)
[2017-10-03] MEDS: Acetaminophen 500 MG Tab PO SCH ×3 (06:08→21:08)
[2017-10-03] MEDS: Omeprazole 20 MG Cap.CR PO SCH (06:08)
[2017-10-03] MEDS: Diltiazem IR 30 MG Tab PO SCH ×3 (08:12→19:38)
[2017-10-03] MEDS: Gabapentin 100 MG Cap PO SCH ×3 (08:12→19:38)
[2017-10-03] MEDS: DULoxetine 60 MG Cap PO SCH ×2 (08:12→19:38)
[2017-10-03] MEDS: Furosemide 40 MG Tab PO SCH (08:12)
[2017-10-03] MEDS: Cholecalciferol (Vitamin D3) 1,000 Unit Tab PO SCH (08:12)
[2017-10-03] MEDS: metFORMIN 500 MG Tab PO SCH ×2 (08:12→17:23)
[2017-10-03] MEDS: Metoprolol Succinate 25 MG Tab.ER PO SCH (08:12)
[2017-10-03] MEDS: Ferrous Sulfate 325 MG Tab PO SCH (08:13)
[2017-10-03] MEDS: Aspirin 81 MG Tab.EC PO SCH (08:13)
[2017-10-03] MEDS: rOPINIRole 0.5 MG Tab PO SCH (19:38)
[2017-10-03] MEDS: Nortriptyline 25 MG Cap PO SCH (19:38)
[2017-10-03] MEDS: Carbidopa/Levodopa 25-100 MG Tab.ER PO SCH (19:38)
[2017-10-03] MEDS: Simvastatin 20 MG Tab PO SCH (19:38)
[2017-10-04] MEDS: Omeprazole 20 MG Cap.CR PO SCH (06:14)
[2017-10-04] MEDS: oxyCODONE 5 MG Tab PO PRN ×3 (06:14→21:25)
[2017-10-04] MEDS: Acetaminophen 500 MG Tab PO SCH ×3 (06:14→21:25)
[2017-10-04] MEDS: Cholecalciferol (Vitamin D3) 1,000 Unit Tab PO SCH (07:49)
[2017-10-04] MEDS: Furosemide 40 MG Tab PO SCH (07:49)
[2017-10-04] MEDS: metFORMIN 500 MG Tab PO SCH ×2 (07:49→17:40)
[2017-10-04] MEDS: DULoxetine 60 MG Cap PO SCH ×2 (07:49→19:34)
[2017-10-04] MEDS: Ferrous Sulfate 325 MG Tab PO SCH (07:49)
[2017-10-04] MEDS: Gabapentin 100 MG Cap PO SCH ×3 (07:49→19:34)
[2017-10-04] MEDS: Metoprolol Succinate 25 MG Tab.ER PO SCH (07:49)
[2017-10-04] MEDS: Aspirin 81 MG Tab.EC PO SCH (07:49)
[2017-10-04] MEDS: Diltiazem IR 30 MG Tab PO SCH ×3 (07:49→19:34)
[2017-10-04] MEDS: Simvastatin 20 MG Tab PO SCH (19:34)
[2017-10-04] MEDS: rOPINIRole 0.5 MG Tab PO SCH (19:34)
[2017-10-04] MEDS: Carbidopa/Levodopa 25-100 MG Tab.ER PO SCH (19:34)
[2017-10-04] MEDS: Nortriptyline 25 MG Cap PO SCH (19:34)
[2017-10-05] MEDS: oxyCODONE 5 MG Tab PO PRN ×2 (06:14→21:17)
[2017-10-05] MEDS: Acetaminophen 500 MG Tab PO SCH ×3 (06:14→21:13)
[2017-10-05] MEDS: Omeprazole 20 MG Cap.CR PO SCH (06:14)
[2017-10-05] MEDS: Aspirin 81 MG Tab.EC PO SCH (07:59)
[2017-10-05] MEDS: Furosemide 40 MG Tab PO SCH (08:00)
[2017-10-05] MEDS: metFORMIN 500 MG Tab PO SCH ×2 (08:00→17:07)
[2017-10-05] MEDS: Metoprolol Succinate 25 MG Tab.ER PO SCH (08:01)
[2017-10-05] MEDS: DULoxetine 60 MG Cap PO SCH ×2 (08:01→21:16)
[2017-10-05] MEDS: Ferrous Sulfate 325 MG Tab PO SCH (08:01)
[2017-10-05] MEDS: Gabapentin 100 MG Cap PO SCH ×3 (08:01→21:15)
[2017-10-05] MEDS: Cholecalciferol (Vitamin D3) 1,000 Unit Tab PO SCH (08:02)
[2017-10-05] MEDS: Diltiazem IR 30 MG Tab PO SCH ×3 (08:02→21:16)
[2017-10-05] MEDS: Simvastatin 20 MG Tab PO SCH (21:14)
[2017-10-05] MEDS: rOPINIRole 0.5 MG Tab PO SCH (21:14)
[2017-10-05] MEDS: Carbidopa/Levodopa 25-100 MG Tab.ER PO SCH (21:17)
[2017-10-05] MEDS: Nortriptyline 25 MG Cap PO SCH (21:17)
[2017-10-05] MEDS: CALCIUM MAGNESIUM ZINC PO SCH (21:18)
[2017-10-06] MEDS: Acetaminophen 500 MG Tab PO SCH ×3 (06:14→21:21)
[2017-10-06] MEDS: Omeprazole 20 MG Cap.CR PO SCH (06:14)
[2017-10-06] MEDS: oxyCODONE 5 MG Tab PO PRN ×3 (06:17→21:21)
[2017-10-06] MEDS: Furosemide 40 MG Tab PO SCH (08:26)
[2017-10-06] MEDS: Gabapentin 100 MG Cap PO SCH ×3 (08:26→21:20)
[2017-10-06] MEDS: Aspirin 81 MG Tab.EC PO SCH (08:26)
[2017-10-06] MEDS: Metoprolol Succinate 25 MG Tab.ER PO SCH (08:27)
[2017-10-06] MEDS: Diltiazem IR 30 MG Tab PO SCH ×3 (08:28→21:19)
[2017-10-06] MEDS: metFORMIN 500 MG Tab PO SCH ×2 (08:28→18:23)
[2017-10-06] MEDS: Cholecalciferol (Vitamin D3) 1,000 Unit Tab PO SCH (08:28)
[2017-10-06] MEDS: Ferrous Sulfate 325 MG Tab PO SCH (08:28)
[2017-10-06] MEDS: DULoxetine 60 MG Cap PO SCH ×2 (08:28→21:20)
[2017-10-06] MEDS: CALCIUM MAGNESIUM ZINC PO SCH ×2 (08:29→21:32)
[2017-10-06] MEDS: Carbidopa/Levodopa 25-100 MG Tab.ER PO SCH (21:20)
[2017-10-06] MEDS: Nortriptyline 25 MG Cap PO SCH (21:20)
[2017-10-06] MEDS: rOPINIRole 0.5 MG Tab PO SCH (21:20)
[2017-10-06] MEDS: Simvastatin 20 MG Tab PO SCH (21:20)
[2017-10-07] MEDS: Acetaminophen 500 MG Tab PO SCH ×3 (06:16→22:31)
[2017-10-07] MEDS: Omeprazole 20 MG Cap.CR PO SCH (06:16)
[2017-10-07] MEDS: Cholecalciferol (Vitamin D3) 1,000 Unit Tab PO SCH (08:02)
[2017-10-07] MEDS: Diltiazem IR 30 MG Tab PO SCH ×3 (08:03→20:09)
[2017-10-07] MEDS: Furosemide 40 MG Tab PO SCH (08:03)
[2017-10-07] MEDS: Aspirin 81 MG Tab.EC PO SCH (08:03)
[2017-10-07] MEDS: DULoxetine 60 MG Cap PO SCH ×2 (08:03→20:09)
[2017-10-07] MEDS: metFORMIN 500 MG Tab PO SCH ×2 (08:03→17:22)
[2017-10-07] MEDS: Ferrous Sulfate 325 MG Tab PO SCH (08:03)
[2017-10-07] MEDS: Gabapentin 100 MG Cap PO SCH ×3 (08:03→20:09)
[2017-10-07] MEDS: CALCIUM MAGNESIUM ZINC PO SCH ×2 (08:04→20:09)
[2017-10-07] MEDS: Metoprolol Succinate 25 MG Tab.ER PO SCH (08:04)
[2017-10-07] MEDS: oxyCODONE 5 MG Tab PO PRN ×3 (08:52→22:32)
[2017-10-07] MEDS: Carbidopa/Levodopa 25-100 MG Tab.ER PO SCH (20:09)
[2017-10-07] MEDS: Nortriptyline 25 MG Cap PO SCH (20:09)
[2017-10-07] MEDS: rOPINIRole 0.5 MG Tab PO SCH (20:09)
[2017-10-07] MEDS: Simvastatin 20 MG Tab PO SCH (20:10)
[2017-10-08 05:34] VITALS: BP 148/84
[2017-10-08] MEDS: Acetaminophen 500 MG Tab PO SCH ×2 (06:26→13:29)
[2017-10-08] MEDS: Omeprazole 20 MG Cap.CR PO SCH (06:27)
[2017-10-08] MEDS: oxyCODONE 5 MG Tab PO PRN ×2 (06:27→13:29)
[2017-10-08] MEDS: DULoxetine 60 MG Cap PO SCH (09:37)
[2017-10-08] MEDS: metFORMIN 500 MG Tab PO SCH (09:37)
[2017-10-08] MEDS: Diltiazem IR 30 MG Tab PO SCH ×2 (09:37→13:28)
[2017-10-08] MEDS: Cholecalciferol (Vitamin D3) 1,000 Unit Tab PO SCH (09:37)
[2017-10-08] MEDS: Gabapentin 100 MG Cap PO SCH (09:38)
[2017-10-08] MEDS: Metoprolol Succinate 25 MG Tab.ER PO SCH (09:38)
[2017-10-08] MEDS: Aspirin 81 MG Tab.EC PO SCH (09:38)
[2017-10-08] MEDS: Furosemide 40 MG Tab PO SCH (09:38)
[2017-10-08] MEDS: Ferrous Sulfate 325 MG Tab PO SCH (09:38)
[2017-10-08] MEDS: CALCIUM MAGNESIUM ZINC PO SCH (09:39)
--- NOTE | 2017-10-09 01:33 | DISCH ---
HISTORY OF PRESENT ILLNESS: This is a 72-year-old female who fell, broke her wrist on 09/26/2017, then was transferred to [place], had surgery, and was transferred back to swing bed on 09/30/2017. She was taking her 2 oxycodone per day, which she normally takes at home. We did increase that up to 3 times a day. She is also on Tylenol. She feels like the pain is doing better, but she is a little bit concerned about going back to twice daily already. She still has pins in place. She sees Orthopedics tomorrow in [place]. PRIMARY DISCHARGE DIAGNOSIS: Left distal radius fracture, surgery on 09/27/2017. SECONDARY DISCHARGE DIAGNOSES: 1. Diabetes, well-controlled. 2. Obesity. 3. Fibromyalgia. 4. Chronic diastolic heart failure. 5. Essential hypertension. 6. Obstructive sleep apnea. 7. Hyperlipidemia. 8. Depression and anxiety. 9. Esophageal motility. 10.Restless legs syndrome. REASON FOR ADMISSION: On the date of admission, this is a 72-year-old female was transferred back from [place] for further swing bed cares. HOSPITAL COURSE: She did well with therapies. She was performing her ADLs, getting dressed, using the bathroom. It was felt that she was stable enough for discharge home with Home Health. Home Health addendum occurred on 10/08/2017. I have seen [id number]. She requires PT and OT and nursing for monitoring of medications and pain and wound care and swelling from a left wrist fracture and surgery. She is unable to drive due to the fracture and she requires assist of another person to leave her home. I will periodically review this plan of care. PHYSICAL EXAMINATION: Vital Signs: On her discharge, temperature 97.1, pulse 81, blood pressure 148/84, respiratory rate 19, and O2 of 92% on room air. General: She is in no acute distress. Heart: Regular rate and rhythm S1, S2 with murmur. Lungs: Sounds are clear to auscultation bilaterally without crackles or wheezes. Extremities: Warm and dry. There is trace ankle edema. Mental Status: Alert and orientated x3. Left wrist examined, pins in place, no bruising is noted, but she has swelling still in her fingers, but it has improved, she is able to move them. MKA: 10/08/2017 17:24:14 MODL: 10/09/2017 01:24:54 /[id number]
== END 2017-10-08 14:06 | disposition home health service (06) | DRG 560 ==
LOC: VM.MS 10:43
PROVIDERS: ADMIT Family Medicine; ATTEND Internal Medicine
DX: S52.502D Unspecified fracture of the lower end of left radius, subsequent encounter for closed fracture with routine healing (principal); I50.32 Chronic diastolic (congestive) heart failure; W19.XXXD Unspecified fall, subsequent encounter; H35.30 Unspecified macular degeneration; I11.0 Hypertensive heart disease with heart failure; E78.00 Pure hypercholesterolemia, unspecified; I34.0 Nonrheumatic mitral (valve) insufficiency; G47.33 Obstructive sleep apnea (adult) (pediatric); K21.9 Gastro-esophageal reflux disease without esophagitis; K59.09 Other constipation; K22.4 Dyskinesia of esophagus; R13.10 Dysphagia, unspecified; R32 Unspecified urinary incontinence; F41.8 Other specified anxiety disorders; G25.81 Restless legs syndrome; M19.90 Unspecified osteoarthritis, unspecified site; G89.29 Other chronic pain; M79.7 Fibromyalgia; E11.40 Type 2 diabetes mellitus with diabetic neuropathy, unspecified; G31.84 Mild cognitive impairment of uncertain or unknown etiology; E66.9 Obesity, unspecified; Z87.891 Personal history of nicotine dependence; Z88.2 Allergy status to sulfonamides; Z88.8 Allergy status to other drugs, medicaments and biological substances; Z79.84 Long term (current) use of oral hypoglycemic drugs; Z79.82 Long term (current) use of aspirin; Z79.899 Other long term (current) drug therapy
CPT/HCPCS: 82962; 97116-GP; 97161-GP; 97166-GO; 97530-GP; 97535-GO; A9270-GY

== ENCOUNTER 2018-05-10 06:00 | Emergency (ER) | payer MEDICARE, OTHER, MEDICAID ==
[2018-05-10] MEDS ORDERED: methylPREDNISolone Sodium Succinate 125 MG/2 ML SDV IM ONE (06:44)
[2018-05-10] MEDS ORDERED: oxyCODONE 5 MG Tab PO ONE (06:48)
--- NOTE | 2018-05-10 07:03 | EDM.PDOC ---
ED HPI GENERAL MEDICAL PROBLEM - General Chief Complaint: Headache Stated Complaint: Facial pain, headache Time Seen by Provider: 05/10/18 06:32 Source of Information: Reports: Patient History Limitations: Reports: No Limitations - History of Present Illness INITIAL COMMENTS - FREE TEXT/NARRATIVE: Patient comes in with reports of left sided sharp intermittent pains that are in the left eye and head areas. These have been going on for several weeks, but have worsened over the last couple of days. She is being treated with augmentin for pneumonia. Primary doctor is Claritza Wilder at [facility] in town here. She also complains of some increased blurriness to her vision on the right side. She denies chest pain, nausea, vomiting, blood in urine or stool. She also has chronic shoulder pain that she feels is worse. No complaints of leg pain or edema. She does have some neck and shoulder pain as well. This is also a chronic condition. Onset: Gradual Duration: Chronic, Getting Worse Location: Reports: Face (left side) Severity: Mild Improves with: Reports: Medication Associated Symptoms: Reports: No Other Symptoms Treatments STORE OPERATIONS SPECIALIST: Reports: Other (see below) Other Treatments STORE OPERATIONS SPECIALIST: Oxycodone 10 mg. @ 0455 [place] area/bilateral Pain Score (Numeric/FACES): 8 - Related Data Allergies Allergy/AdvReac Type Severity Reaction Status Date / Time salsalate [Salsalate] Allergy Other Verified 05/10/18 06:25 codeine AdvReac Nausea and Verified 05/10/18 06:25 Vomiting cyclobenzaprine HCl AdvReac Fatigue Verified 05/10/18 06:25 [From Flexeril] fentanyl AdvReac Nausea and Verified 05/10/18 06:25 Vomiting Sulfa (Sulfonamide AdvReac Body Aches Verified 05/10/18 06:25 Antibiotics) Home Meds: Home Meds Calcium Carb/Mag Ox/Zinc Gluc [Kxklqzb-Vhtfhtrav-Egxf] 1 tab PO QID 11/11/13 [ History] Carbidopa/Levodopa [Carbidopa-Levo ER 25-100] 1 tab PO BEDTIME 11/11/13 [History ] Cholecalciferol (Vitamin D3) [Vitamin D3] 1,000 units PO DAILY 11/11/13 [History ] Diltiazem IR [Cardizem] 30 mg PO TID 11/11/13 [History] Fluticasone Propionate [Flonase] 1 spray NASBOTH DAILY 11/11/13 [History] Furosemide [Lasix] 40 mg PO DAILY 11/11/13 [History] Gabapentin [Neurontin] 100 mg PO BID 11/11/13 [History] Gabapentin [Neurontin] 300 mg PO BEDTIME 11/11/13 [History] Metoprolol Succinate [Toprol XL] 25 mg PO DAILY 11/11/13 [History] Omeprazole 20 mg PO ACBREAKFAST 11/11/13 [History] metFORMIN [Glucophage] 500 mg PO BIDM 11/11/13 [History] Aspirin [Halfprin] 81 mg PO DAILY #0 11/24/13 [Rx] Fish Oil/[place]-3 Fatty Acids [Fish Oil 1,000 MG] 1,000 mg PO DAILY 01/22/15 [ History] DULoxetine [Cymbalta] 60 mg PO BID 03/19/15 [History] Flaxseed Oil [Flaxseed] 1,000 mg PO DAILY 03/19/15 [History] Fluticasone Propionate [Flonase] 1 spray NASBOTH BEDTIME PRN 03/19/15 [History] Pravastatin Sodium [Pravastatin (Pravachol)] 40 mg PO BEDTIME 03/19/15 [History] Nitroglycerin [IJP: Nitroglycerin] 0.4 mg SL ASDIRECTED PRN 04/23/16 [History] Nortriptyline 25 mg PO BEDTIME 04/23/16 [History] oxyCODONE 10 mg PO BID PRN 04/23/16 [History] Acetaminophen [Tylenol Extra Strength] 1,000 mg PO Q8H 04/24/16 [History] Ondansetron HCl [Zofran] 4 mg PO TID PRN 09/26/17 [History] rOPINIRole HCl [Requip] 0.25 mg PO BEDTIME 09/26/17 [History] Ferrous Sulfate [Iron] 325 mg PO DAILY 09/30/17 [History] Methyl Salicylate/Menthol [Thera-Gesic Analgesic] 1 applic TOP TID PRN 09/30/17 [History] Past Medical History HEENT History: Reports: Allergic Rhinitis, Macular Degeneration Cardiovascular History: Reports: Heart Failure, High Cholesterol, Hypertension Other Cardiovascular History: MITRAL REGURGITATION. 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 ESOPHAGEAL DYSMOTILITY. 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 SHOULDER JOINT DISLOCATION. COMPLICATION OF INTERNAL ORTHOPEDIC PROSTHETIC DEVICE, IMPLANT, OR GRAFT. RIGHT SHOULDER PAIN. ARTHRALGIA OF TEMPOROMANDIBULAR JOINT. MUSCLE CRAMPS. CHRONIC PAIN SYNDROME Neurological History: Reports: Neuropathy, Diabetic Other Neuro History: RLS Psychiatric History: Reports: Anxiety, Depression Other Psychiatric History: MILD COGNITIVE IMPAIRMENT Endocrine/Metabolic History: Reports: Diabetes, Type II, Obesity/BMI 30+ Hematologic History: Reports: None Immunologic History: Reports: None Oncologic (Cancer) History: Reports: Basal Cell Carcinoma Other Dermatologic History: HX cellulitis to Left shoulder - Infectious Disease History Infectious Disease History: Reports: Chicken Pox - Past Surgical History Head Surgeries/Procedures: Reports: None HEENT Surgical History: Reports: Cataract Surgery Cardiovascular Surgical History: Reports: None Respiratory Surgical History: Reports: None GI Surgical History: Reports: Appendectomy, Colonoscopy Female Surgical History: Reports: None Endocrine Surgical History: Reports: None Musculoskeletal Surgical History: Reports: Hip Replacement, Joint Replacement, Knee Replacement, ORIF, Shoulder Replacement, Shoulder Surgery Dermatological Surgical History: Reports: Skin Biopsy Social & Family History - Family History Family Medical History: Noncontributory GI: Reports: Cirrhosis Neurological: Reports: Alzheimers Disease Psychiatric: Reports: Depression, Other (See Below) - Caffeine Use Caffeine Use: Reports: Coffee, Tea - Living Situation & Occupation Living situation: Reports: , Alone (in senior apartments) Occupation: Retired ED ROS GENERAL - Review of Systems Review Of Systems: See Below Constitutional: Reports: No Symptoms HEENT: Reports: Eye Pain (patient states pain to be the side of the eye/ forehead and headache), Vision Change (right side, not on effected side) Respiratory: Reports: No Symptoms Cardiovascular: Reports: No Symptoms Endocrine: Reports: No Symptoms GI/Abdominal: Reports: No Symptoms : Reports: No Symptoms Musculoskeletal: Reports: Shoulder Pain Skin: Reports: No Symptoms Neurological: Reports: Headache Psychiatric: Reports: No Symptoms Hematologic/Lymphatic: Reports: No Symptoms Immunologic: Reports: No Symptoms ED EXAM, GENERAL - Physical Exam Exam: See Below Exam Limited By: No Limitations General Appearance: Alert, WD/WN, Mild Distress Eye Exam: Bilateral Eye: EOMI, Normal Inspection, PERRL Ears: Normal TMs Ear Exam: Bilateral Ear: Auricle Normal, Canal Normal, TM normal Nose: Normal Inspection, Normal Mucosa, No Blood Throat/Mouth: Normal Inspection, Normal Lips, Normal Teeth, Normal Gums, Normal Oropharynx, Normal Voice, No Airway Compromise Head: Atraumatic, Normocephalic Neck: Normal Inspection, Supple, Non-Tender, Full Range of Motion Respiratory/Chest: No Respiratory Distress, Lungs Clear, Normal Breath Sounds, No Accessory Muscle Use, Chest Non-Tender Cardiovascular: Normal Peripheral Pulses, Regular Rate, Rhythm, No Edema, No Gallop, No JVD, No Murmur, No Rub Peripheral Pulses: 2+: Posterior Tibial (L), Posterior Tibial (R), Dorsalis Pedis (L), Dorsalis Pedis (R) GI/Abdominal: Normal Bowel Sounds, Soft, Non-Tender, No Organomegaly, No Distention, No Abnormal Bruit, No Mass Back Exam: Normal Inspection, Full Range of Motion, NT Extremities: Normal Inspection, Normal Range of Motion, Non-Tender, Normal Capillary Refill, No Pedal Edema Neurological: Alert, Oriented, CN II-XII Intact, Normal Cognition, Normal Gait, Normal Reflexes, No Motor/Sensory Deficits Psychiatric: Normal Affect, Normal Mood Skin Exam: Warm, Dry, Intact, Normal Color, No Rash Lymphatic: No Adenopathy Course - Vital Signs Last Recorded V/S: Last Vital Signs Temp 37.4 C 05/10/18 06:00 Pulse 76 05/10/18 06:00 Resp 16 05/10/18 06:00 BP 128/53 L 05/10/18 06:00 Pulse Ox 92 L 05/10/18 06:00 - Orders/Labs/Meds Orders: Active Orders 24 hr Category Date Time Status Chest 2V [CR] Stat Exams 05/10/18 06:44 Ordered Head wo Cont [CT] Stat Exams 05/10/18 06:47 Ordered C-REACTIVE PROTEIN [CHEM] Stat Lab 05/10/18 06:44 Ordered CBC WITH AUTO DIFF [HEME] Stat Lab 05/10/18 06:44 Ordered COMPREHENSIVE METABOLIC PN,CMP [CHEM] Stat Lab 05/10/18 06:44 Ordered Meds: Medications Discontinued Medications Generic Name Dose Route Start Last Admin Trade Name Arden PRN Reason Stop Dose Admin Methylprednisolone Sodium Succinate 125 mg 05/10/18 06:44 Solu-Medrol IM 05/10/18 06:45 ONETIME ONE Oxycodone HCl 5 mg 05/10/18 06:48 Oxycodone PO 05/10/18 06:49 ONETIME ONE Departure - Departure Time of Disposition: 08:19 Disposition: Home, Self-Care 01 Condition: Good Clinical Impression: Myofascial muscle pain - Discharge Information *PRESCRIPTION DRUG MONITORING PROGRAM REVIEWED*: Not Applicable *COPY OF PRESCRIPTION DRUG MONITORING REPORT IN PATIENT MELISSA: Not Applicable Instructions: Myofascial Pain Syndrome and Fibromyalgia Additional Instructions: Please schedule a follow up appointment as soon as possible with Dr. Wilder. I have started you on Azithromycin. You took today's dose already. Start taking 250 mg tomorrow for the next 4 days. You did also receive oxycodone while you were her for pain. Your labwork and Head CT were negative for any acute illness, however, your chest x-ray does show a persistent pneumonia to the right middle lobe. Dr. Wilder may want to put you on a scheduled steroid or muscle relaxer for your sharp pains to the left side of your head. Please call us with any questions or concerns. - Problem List & Annotations (1) Myofascial muscle pain SNOMED Code(s): 569877709, 033331597 Code(s): M79.7 - FIBROMYALGIA Status: Acute Priority: Medium Current Visit: Yes Onset Date: 01/22/15 - Problem List Review Problem List Initiated/Reviewed/Updated: Yes - My Orders Last 24 Hours: My Active Orders 05/10/18 06:44 Chest 2V [CR] Stat C-REACTIVE PROTEIN [CHEM] Stat CBC WITH AUTO DIFF [HEME] Stat COMPREHENSIVE METABOLIC PN,CMP [CHEM] Stat 05/10/18 06:47 Head wo Cont [CT] Stat - Assessment/Plan Last 24 Hours: My Active Orders 05/10/18 06:44 Chest 2V [CR] Stat C-REACTIVE PROTEIN [CHEM] Stat CBC WITH AUTO DIFF [HEME] Stat COMPREHENSIVE METABOLIC PN,CMP [CHEM] Stat 05/10/18 06:47 Head wo Cont [CT] Stat Assessment:: myofascial muscle pain Plan: Please schedule a follow up appointment as soon as possible with Dr. Wilder. I have started you on Azithromycin. You took today's dose already. Start taking 250 mg tomorrow for the next 4 days. Your labwork and Head CT were negative for any acute illness, however, your chest x-ray does show a persistent pneumonia to the right middle lobe. Dr. Wilder may want to put you on a scheduled steroid or muscle relaxer for your sharp pains to the left side of your head. Please call us with any questions or concerns.
[2018-05-10] MEDS ORDERED: Azithromycin 250 MG Tab PO ONE (07:19)
[2018-05-10 07:42] LABS: ANION GAP 7.9 mmol/L (10-20)
[2018-05-10 08:37] VITALS: BP 137/56
== END 2018-05-10 08:44 | disposition home or self-care (01) ==
LOC: VM.ED 06:00
DX: M79.1 Myalgia (principal); E11.9 Type 2 diabetes mellitus without complications; I11.0 Hypertensive heart disease with heart failure; I50.9 Heart failure, unspecified; E78.00 Pure hypercholesterolemia, unspecified; Z79.82 Long term (current) use of aspirin; Z79.899 Other long term (current) drug therapy; Z88.5 Allergy status to narcotic agent; Z88.2 Allergy status to sulfonamides; Z88.8 Allergy status to other drugs, medicaments and biological substances
CPT/HCPCS: 36415; 70450; 71046; 80053; 82550; 85025; 86140; 99283-GF; 99284; A9270-GY; J2930

== ENCOUNTER 2019-01-16 00:15 | Emergency (ER) | payer MEDICARE, OTHER, MEDICAID ==
[2019-01-16] MEDS ORDERED: Lidocaine 1% 30 ML SDV INJECT ONE (00:42)
--- NOTE | 2019-01-16 01:17 | EDM.PDOC ---
ED HPI GENERAL MEDICAL PROBLEM - General Stated Complaint: FAll, Head laceration, neck pain Time Seen by Provider: 01/16/19 00:15 Source of Information: Reports: Patient History Limitations: Reports: No Limitations - History of Present Illness INITIAL COMMENTS - FREE TEXT/NARRATIVE: Pt. presents to ER with complaints of scalp laceration post fall. Pt. states that she was getting out of a car when she misstepped and fell onto the concrete. Pt. sustained a laceration to her R temoral aspect of her scalp and possible injury of the R parietal/occipital area as well. Denies any LOC. The entire event was witnessed and she was alert and oriented prior to and after the fall. She denies any chest pain or shortness of breath or palpitations prior to the fall. Her only other complaint is that of neck pain, high cervical, located primarily in the R lateral area. Complains of superficial pain to R side of scalp Pt. was transported to ER via EMS with long spineboard and c-collar in place. Pt. was immediately removed for longboard on arrival to ER. Onset Date: 01/16/19 Location: Reports: Head, Neck - Related Data Allergies Allergy/AdvReac Type Severity Reaction Status Date / Time salsalate [Salsalate] Allergy Other Verified 05/10/18 06:25 codeine AdvReac Nausea and Verified 05/10/18 06:25 Vomiting cyclobenzaprine HCl AdvReac Fatigue Verified 05/10/18 06:25 [From Flexeril] fentanyl AdvReac Nausea and Verified 05/10/18 06:25 Vomiting Sulfa (Sulfonamide AdvReac Body Aches Verified 05/10/18 06:25 Antibiotics) Home Meds: Home Meds Calcium Carb/Mag Ox/Zinc Gluc [Yvfrcwp-Ovhktajac-Qqqf] 1 tab PO QID 11/11/13 [ History] Carbidopa/Levodopa [Carbidopa-Levo ER 25-100] 1 tab PO BEDTIME 11/11/13 [History ] Cholecalciferol (Vitamin D3) [Vitamin D3] 1,000 units PO DAILY 11/11/13 [History ] Diltiazem IR [Cardizem] 30 mg PO TID 11/11/13 [History] Fluticasone Propionate [Flonase] 1 spray NASBOTH DAILY 11/11/13 [History] Furosemide [Lasix] 40 mg PO DAILY 11/11/13 [History] Gabapentin [Neurontin] 100 mg PO BID 11/11/13 [History] Gabapentin [Neurontin] 300 mg PO BEDTIME 11/11/13 [History] Metoprolol Succinate [Toprol XL] 25 mg PO DAILY 11/11/13 [History] Omeprazole 20 mg PO ACBREAKFAST 11/11/13 [History] metFORMIN [Glucophage] 500 mg PO BIDM 11/11/13 [History] Aspirin [Halfprin] 81 mg PO DAILY #0 11/24/13 [Rx] Fish Oil/[place]-3 Fatty Acids [Fish Oil 1,000 MG] 1,000 mg PO DAILY 01/22/15 [ History] DULoxetine [Cymbalta] 60 mg PO BID 03/19/15 [History] Flaxseed Oil [Flaxseed] 1,000 mg PO DAILY 03/19/15 [History] Fluticasone Propionate [Flonase] 1 spray NASBOTH BEDTIME PRN 03/19/15 [History] Pravastatin Sodium [Pravastatin (Pravachol)] 40 mg PO BEDTIME 03/19/15 [History] Nitroglycerin [IJP: Nitroglycerin] 0.4 mg SL ASDIRECTED PRN 04/23/16 [History] Nortriptyline 25 mg PO BEDTIME 04/23/16 [History] oxyCODONE 10 mg PO BID PRN 04/23/16 [History] Acetaminophen [Tylenol Extra Strength] 1,000 mg PO Q8H 04/24/16 [History] Ondansetron HCl [Zofran] 4 mg PO TID PRN 09/26/17 [History] rOPINIRole HCl [Requip] 0.25 mg PO BEDTIME 09/26/17 [History] Ferrous Sulfate [Iron] 325 mg PO DAILY 09/30/17 [History] Methyl Salicylate/Menthol [Thera-Gesic Analgesic] 1 applic TOP TID PRN 09/30/17 [History] Past Medical History HEENT History: Reports: Allergic Rhinitis, Macular Degeneration Cardiovascular History: Reports: Heart Failure, High Cholesterol, Hypertension Other Cardiovascular History: MITRAL REGURGITATION. 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 ESOPHAGEAL DYSMOTILITY. 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 SHOULDER JOINT DISLOCATION. COMPLICATION OF INTERNAL ORTHOPEDIC PROSTHETIC DEVICE, IMPLANT, OR GRAFT. RIGHT SHOULDER PAIN. ARTHRALGIA OF TEMPOROMANDIBULAR JOINT. MUSCLE CRAMPS. CHRONIC PAIN SYNDROME Neurological History: Reports: Neuropathy, Diabetic Other Neuro History: RLS Psychiatric History: Reports: Anxiety, Depression Other Psychiatric History: MILD COGNITIVE IMPAIRMENT Endocrine/Metabolic History: Reports: Diabetes, Type II, Obesity/BMI 30+ Hematologic History: Reports: None Immunologic History: Reports: None Oncologic (Cancer) History: Reports: Basal Cell Carcinoma Other Dermatologic History: HX cellulitis to Left shoulder - Infectious Disease History Infectious Disease History: Reports: Chicken Pox - Past Surgical History Head Surgeries/Procedures: Reports: None HEENT Surgical History: Reports: Cataract Surgery Cardiovascular Surgical History: Reports: None Respiratory Surgical History: Reports: None GI Surgical History: Reports: Appendectomy, Colonoscopy Female Surgical History: Reports: None Endocrine Surgical History: Reports: None Musculoskeletal Surgical History: Reports: Hip Replacement, Joint Replacement, Knee Replacement, ORIF, Shoulder Replacement, Shoulder Surgery Dermatological Surgical History: Reports: Skin Biopsy Social & Family History - Family History Family Medical History: Noncontributory GI: Reports: Cirrhosis Neurological: Reports: Alzheimers Disease Psychiatric: Reports: Depression, Other (See Below) - Caffeine Use Caffeine Use: Reports: Coffee, Tea - Living Situation & Occupation Living situation: Reports: , Alone (in senior apartments) Occupation: Retired ED ROS GENERAL - Review of Systems Review Of Systems: See Below Constitutional: Reports: No Symptoms HEENT: Reports: No Symptoms, Other (R sided head pain/bleeding) Respiratory: Reports: No Symptoms Cardiovascular: Reports: No Symptoms. Denies: Chest Pain, Dyspnea on Exertion, Palpitations, Syncope Endocrine: Reports: No Symptoms GI/Abdominal: Reports: No Symptoms : Reports: No Symptoms Musculoskeletal: Reports: No Symptoms Skin: Reports: No Symptoms Neurological: Denies: Confusion, Dizziness, Headache, Numbness, Paresthesia, Pre -Existing Deficit, Syncope Psychiatric: Reports: No Symptoms Hematologic/Lymphatic: Reports: No Symptoms Immunologic: Reports: No Symptoms ED EXAM, GENERAL - Physical Exam Exam: See Below Exam Limited By: No Limitations General Appearance: Alert, WD/WN, No Apparent Distress Eye Exam: Bilateral Eye: EOMI, Normal Fundi, Normal Inspection, PERRL Ears: Normal External Exam, Normal TMs Ear Exam: Bilateral Ear: Auricle Normal, Canal Normal, TM normal Nose: Normal Inspection, Normal Mucosa, No Blood Throat/Mouth: Normal Inspection, Normal Lips, Normal Teeth, Normal Gums, Normal Oropharynx, Normal Voice, No Airway Compromise Head: Other (R temporal scalp contusion/abrasion. She has point tenderness and some edema to the parietal are on the right, but there is no obvious trauma noted. She has numerous other abrasions to the scalp and forehead on the R side. ) Respiratory/Chest: No Respiratory Distress, Lungs Clear, Normal Breath Sounds, No Accessory Muscle Use, Chest Non-Tender Cardiovascular: Normal Peripheral Pulses, Regular Rate, Rhythm, No Edema, No Gallop, No JVD, No Murmur, No Rub GI/Abdominal: Normal Bowel Sounds, Soft, Non-Tender, No Organomegaly, No Distention (Female) Exam: Deferred Rectal (Female) Exam: Deferred Back Exam: Normal Inspection, Full Range of Motion Extremities: Normal Inspection, Normal Range of Motion, Non-Tender, No Pedal Edema, Normal Capillary Refill Neurological: Alert, Oriented, CN II-XII Intact, Normal Cognition, Normal Gait, Normal Reflexes, No Motor/Sensory Deficits Psychiatric: Normal Affect, Normal Mood Skin Exam: Warm, Dry, Intact, Normal Color, No Rash Course - Orders/Labs/Meds Orders: Active Orders 24 hr Category Date Time Status Cervical Spine wo Cont [CT] Stat Exams 01/16/19 00:32 Taken Head wo Cont [CT] Stat Exams 01/16/19 00:31 Taken Meds: Medications Discontinued Medications Generic Name Dose Route Start Last Admin Trade Name Marquiseq PRN Reason Stop Dose Admin Acetaminophen 1,000 mg 01/16/19 01:33 01/16/19 01:36 Tylenol Extra Strength PO 01/16/19 01:34 1,000 mg ONETIME ONE Administration Lidocaine HCl 30 ml 01/16/19 00:42 Xylocaine-Mpf 1% INJECT 01/16/19 00:43 ONETIME ONE Oxycodone HCl 10 mg 01/16/19 01:24 01/16/19 01:29 Oxycodone PO 01/16/19 01:25 10 mg ONETIME ONE Administration - Radiology Interpretation Free Text/Narrative:: CT brain and cervical spine are negative for acute pathology. Departure - Departure Time of Disposition: 02:17 Disposition: Home, Self-Care 01 Condition: Good Clinical Impression: Closed head injury, Laceration - Discharge Information Instructions: Head Injury, Adult, Laceration Care, Adult Forms: ED Department Discharge Additional Instructions: Staple removal in clinic on January 24 or . This can be done by a nurse. Keep laceration area dry for 24 hours. You can use your oxycodone and tylenol for pain relief. Return to ER of follow-up in clinic if you develop any redness, swelling, or discharge from the area. Also return if you have severe headache, vomiting, or confusion. - My Orders Last 24 Hours: My Active Orders 01/16/19 00:31 Head wo Cont [CT] Stat 01/16/19 00:32 Cervical Spine wo Cont [CT] Stat - Assessment/Plan Last 24 Hours: My Active Orders 01/16/19 00:31 Head wo Cont [CT] Stat 01/16/19 00:32 Cervical Spine wo Cont [CT] Stat Plan: Staple removal in clinic on January 24 or . This can be done by a nurse. Keep laceration area dry for 24 hours. You can use your oxycodone and tylenol for pain relief. Return to ER of follow-up in clinic if you develop any redness, swelling, or discharge from the area. Also return if you have severe headache, vomiting, or confusion.
[2019-01-16] MEDS ORDERED: oxyCODONE 5 MG Tab PO ONE (01:24)
[2019-01-16] MEDS ORDERED: Acetaminophen 500 MG Tab PO ONE (01:33)
[2019-01-16 03:22] VITALS: BP 147/72
--- NOTE | 2019-01-16 13:15 | CT ---
[id number] CT/CT Cervical Spine WO IV EXAM: NONCONTRAST CERVICAL SPINE CT INDICATION: Fall with head trauma. COMPARISON: None. DISCUSSION: Partial fusion of C2 with C3. The cervical vertebral bodies are normal in height and alignment. No fracture or suspicious osseous lesion is identified. There is moderate degenerative disc disease at C4-C5. Mild to moderate changes the remaining disc levels. Moderate facet arthropathy throughout the cervical spine. 19 x 13 mm left thyroid nodule. This may have been present on the prior study, but comparison is limited as the prior imaging did not include soft tissue windows. IMPRESSION: 1. No evidence of acute cervical spine trauma. Herman Mercado MD 01/16/19 [id number] Thank you for allowing us to participate in the care of your patient.
--- NOTE | 2019-01-16 13:19 | CT ---
[id number] CT/CT Head WO IV EXAM: NONCONTRAST HEAD CT INDICATION: Fall with head trauma. COMPARISON: May 10, 2018. DISCUSSION: Right anterior scalp soft tissue swelling. Stable mild to moderate generalized atrophy. Stable mild to moderate chronic small vessel ischemic changes. Findings include bilateral basal ganglia lacunar infarcts. No mass effect or midline shift. No acute hemorrhage or extra-axial fluid collection. No acute territorial infarct is identified. A limited look at the orbits and paranasal sinuses is unremarkable. IMPRESSION: 1. No evidence of acute intracranial trauma. Herman Mercado MD 01/16/19 2221 Thank you for allowing us to participate in the care of your patient.
== END 2019-01-16 02:20 | disposition home or self-care (01) ==
LOC: VM.ED 00:15
DX: S01.01XA Laceration without foreign body of scalp, initial encounter (principal); I11.0 Hypertensive heart disease with heart failure; I50.9 Heart failure, unspecified; K21.9 Gastro-esophageal reflux disease without esophagitis; F41.9 Anxiety disorder, unspecified; F32.9 Major depressive disorder, single episode, unspecified; E11.40 Type 2 diabetes mellitus with diabetic neuropathy, unspecified; Z88.5 Allergy status to narcotic agent; Z79.84 Long term (current) use of oral hypoglycemic drugs; Z79.899 Other long term (current) drug therapy; Z88.8 Allergy status to other drugs, medicaments and biological substances; Z88.2 Allergy status to sulfonamides; W19.XXXA Unspecified fall, initial encounter
CPT/HCPCS: 12001; 70450; 72125; 99285; A9270; J2001

== ENCOUNTER 2020-04-15 14:17 | Emergency (ER) | payer MEDICARE, OTHER, MEDICAID ==
--- NOTE | 2020-04-15 14:30 | EDM.PDOC ---
ED HPI GENERAL MEDICAL PROBLEM - General Chief Complaint: Laceration Stated Complaint: laceration Time Seen by Provider: 04/15/20 14:17 Source of Information: Reports: Patient History Limitations: Reports: No Limitations - History of Present Illness INITIAL COMMENTS - FREE TEXT/NARRATIVE: Comes into the emergency department with complaints of a laceration by EMS. Patient states that she was walking with her walker ended up mis-stepping and falling hitting her right lower extremity on her walker. Patient denies any other injuries or hitting her head. Patient states she was able to get up however the bleeding became concerning and they ended up calling 911 for assistance. Patient states that she has no pain and states that she feels fairly well. Patient denies any chest pain, shortness of breath, dizziness, lightheadedness, blurred vision, GI upset, genitourinary concerns, or peripheral edema. Patient denies any other injuries during the fall. Patient denies any factors that make the symptoms worse or better. Patient also denies any recent COVID-19 exposure or recent testing. Onset: Today, Sudden Location: Reports: Lower Extremity, Right Quality: Reports: Other Severity: Mild Improves with: Reports: None Worsens with: Reports: None - Related Data Allergies Allergy/AdvReac Type Severity Reaction Status Date / Time salsalate [Salsalate] Allergy Other Verified 01/16/19 03:09 codeine AdvReac Nausea and Verified 01/16/19 03:09 Vomiting cyclobenzaprine HCl AdvReac Fatigue Verified 01/16/19 03:09 [From Flexeril] fentanyl AdvReac Nausea and Verified 01/16/19 03:09 Vomiting Sulfa (Sulfonamide AdvReac Body Aches Verified 01/16/19 03:09 Antibiotics) Home Meds: Home Meds Calcium Carb/Mag Ox/Zinc Gluc [Dgyxsrr-Gvheskscc-Moyh] 1 tab PO QID 11/11/13 [History] Carbidopa/Levodopa [Carbidopa-Levo ER 25-100] 1 tab PO BEDTIME 11/11/13 [History] Cholecalciferol (Vitamin D3) [Vitamin D3] 1,000 units PO DAILY 11/11/13 [History] Diltiazem IR [Cardizem] 30 mg PO TID 11/11/13 [History] Fluticasone Propionate [Flonase] 1 spray NASBOTH DAILY 11/11/13 [History] Furosemide [Lasix] 40 mg PO DAILY 11/11/13 [History] Gabapentin [Neurontin] 100 mg PO BID 11/11/13 [History] Gabapentin [Neurontin] 300 mg PO BEDTIME 11/11/13 [History] Metoprolol Succinate [Toprol XL] 25 mg PO DAILY 11/11/13 [History] Omeprazole 20 mg PO ACBREAKFAST 11/11/13 [History] metFORMIN [Glucophage] 500 mg PO BIDM 11/11/13 [History] Aspirin [Halfprin] 81 mg PO DAILY #0 11/24/13 [Rx] Fish Oil/[place]-3 Fatty Acids [Fish Oil 1,000 MG] 1,000 mg PO DAILY 01/22/15 [History] DULoxetine [Cymbalta] 60 mg PO BID 03/19/15 [History] Flaxseed Oil [Flaxseed] 1,000 mg PO DAILY 03/19/15 [History] Fluticasone Propionate [Flonase] 1 spray NASBOTH BEDTIME PRN 03/19/15 [History] Pravastatin Sodium [Pravastatin (Pravachol)] 40 mg PO BEDTIME 03/19/15 [History] Nitroglycerin [IJP: Nitroglycerin] 0.4 mg SL ASDIRECTED PRN 04/23/16 [History] Nortriptyline 25 mg PO BEDTIME 04/23/16 [History] oxyCODONE 10 mg PO BID PRN 04/23/16 [History] Acetaminophen [Tylenol Extra Strength] 1,000 mg PO Q8H 04/24/16 [History] ondansetron HCL [Zofran] 4 mg PO TID PRN 09/26/17 [History] rOPINIRole HCl [Requip] 0.25 mg PO BEDTIME 09/26/17 [History] Ferrous Sulfate [Iron] 325 mg PO DAILY 09/30/17 [History] Methyl Salicylate/Menthol [Thera-Gesic Analgesic] 1 applic TOP TID PRN 09/30/17 [History] Past Medical History HEENT History: Reports: Allergic Rhinitis, Macular Degeneration Cardiovascular History: Reports: Heart Failure, High Cholesterol, Hypertension Other Cardiovascular History: MITRAL REGURGITATION. 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 ESOPHAGEAL DYSMOTILITY. 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 SHOULDER JOINT DISLOCATION. COMPLICATION OF INTERNAL ORTHOPEDIC PROSTHETIC DEVICE, IMPLANT, OR GRAFT. RIGHT SHOULDER PAIN. ARTHRALGIA OF TEMPOROMANDIBULAR JOINT. MUSCLE CRAMPS. CHRONIC PAIN SYNDROME Neurological History: Reports: Neuropathy, Diabetic Other Neuro History: RLS Psychiatric History: Reports: Anxiety, Depression Other Psychiatric History: MILD COGNITIVE IMPAIRMENT Endocrine/Metabolic History: Reports: Diabetes, Type II, Obesity/BMI 30+ Hematologic History: Reports: None Immunologic History: Reports: None Oncologic (Cancer) History: Reports: Basal Cell Carcinoma Other Dermatologic History: HX cellulitis to Left shoulder - Infectious Disease History Infectious Disease History: Reports: Chicken Pox - Past Surgical History Head Surgeries/Procedures: Reports: None HEENT Surgical History: Reports: Cataract Surgery Cardiovascular Surgical History: Reports: None Respiratory Surgical History: Reports: None GI Surgical History: Reports: Appendectomy, Colonoscopy Female Surgical History: Reports: None Endocrine Surgical History: Reports: None Musculoskeletal Surgical History: Reports: Hip Replacement, Joint Replacement, Knee Replacement, ORIF, Shoulder Replacement, Shoulder Surgery Dermatological Surgical History: Reports: Skin Biopsy Social & Family History - Family History Family Medical History: Noncontributory GI: Reports: Cirrhosis Neurological: Reports: Alzheimers Disease Psychiatric: Reports: Depression, Other (See Below) - Caffeine Use Caffeine Use: Reports: Coffee, Tea - Living Situation & Occupation Living situation: Reports: , Alone (in senior apartments) Occupation: Retired Review of Systems - Review of Systems Review Of Systems: Comprehensive ROS is negative, except as noted in HPI. Constitutional: Reports: No Symptoms Eyes: Reports: No Symptoms Ears: Reports: No Symptoms Nose: Reports: No Symptoms Mouth/Throat: Reports: No Symptoms Respiratory: Reports: No Symptoms Cardiovascular: Reports: No Symptoms GI/Abdominal: Reports: No Symptoms Genitourinary: Reports: No Symptoms Skin: Reports: No Symptoms Neurological: Reports: No Symptoms Psychiatric: Reports: No Symptoms ED EXAM, GENERAL - Physical Exam Exam: See Below Exam Limited By: No Limitations General Appearance: Alert, WD/WN, No Apparent Distress Head: Atraumatic, Normocephalic Neck: Normal Inspection, Supple, Non-Tender, Full Range of Motion Respiratory/Chest: No Respiratory Distress, Lungs Clear, Normal Breath Sounds, No Accessory Muscle Use, Chest Non-Tender Cardiovascular: Normal Peripheral Pulses, Regular Rate, Rhythm, No Edema Peripheral Pulses: 4+: Dorsalis Pedis (L), Dorsalis Pedis (R) Extremities: Pedal Edema (2+ ), Other (2 lacerations right lower leg with mild bleeding. ) Neurological: Alert, Oriented, Normal Gait Psychiatric: Normal Affect, Normal Mood ED TRAUMA EXTREMITY PROCEDURES - Laceration/Wound Repair Right Lower Proximal Leg Lac/Wound Length In cm: 2 Appearance: Linear, Clean Distal NVT: Neuro & Vascular Intact, No Tendon Injury Anesthetic Type: Local Local Anesthesia - Lidocaine (Xylocaine): 1% Plain Local Anesthetic Volume: 3cc Skin Prep: Saline, Sterile Drape Closed With: Sutures Suture Size: 4-0 # of Sutures: 6 Suture Type: Simple Sterile Dressing Applied: Nurse Tetanus Status Addressed: Yes Complications: No Right Lower Distal Leg Lac/Wound Length In cm: 2 Appearance: Irregular Distal NVT: Neuro & Vascular Intact, No Tendon Injury Anesthetic Type: Local Local Anesthesia - Lidocaine (Xylocaine): 1% Plain Local Anesthetic Volume: 4cc Skin Prep: Chlorhexidine (Hibiciens), Saline, Sterile Drape Exploration/Debridement/Repair: No Foreign Material Found Closed With: Sutures Suture Size: 4-0 # of Sutures: 5 Suture Type: Simple Sterile Dressing Applied: Nurse Complications: No Course - Orders/Labs/Meds Meds: Medications Discontinued Medications Generic Name Dose Route Start Last Admin Trade Name Arden PRN Reason Stop Dose Admin Lidocaine HCl 5 ml 04/15/20 14:23 Xylocaine-Mpf 1% INJECT 04/15/20 14:24 ONETIME ONE Departure - Departure Time of Disposition: 14:55 Disposition: Home, Self-Care 01 Condition: Good Clinical Impression: Laceration - Discharge Information *PRESCRIPTION DRUG MONITORING PROGRAM REVIEWED*: Not Applicable *COPY OF PRESCRIPTION DRUG MONITORING REPORT IN PATIENT MELISSA: Not Applicable Instructions: Laceration Care, Adult, [id number], VIS, DTaP (Diphtheria, Tetanus, Pertussis) Vaccine - CDC (12/14/2019) Forms: ED Department Discharge Additional Instructions: 1. Rest 2. Keep the area clean and dry 3. Can use tylenol and ibuprofen as needed for pain and discomfort 4. Diet as tolerated 5. Activity as tolerated 6. Elevated the injured area above the level of the heart to decrease swelling and discomfort if applicable 7. Can use ice 3-4 times a day at 20-minute intervals to help with any swelling and discomfort 8. Follow-up with your primary care provider symptoms continue or to progress 9. Discharge information has been provided regarding your injury and wound care has been provided 10. Avoid an public pools or hot tubes until wound is healed. 11. Follow up in the Clinic in 10 days for removal of sutures - Assessment/Plan Assessment:: 1. laceration right lower leg Plan: 1. Wound cleansing completed 2. Laceration repair completed 3. Tdap vaccine history completed 4. Education regarding wound care, dressing changes, OTC medications, activity, diet, follow up care and when to seek care if warranted provided 5. Patient is to return to the clinic in 10 days to have sutures site evaluated and removed 6. Patient was encouraged to call or return if any questions or concerns arise.
[2020-04-15 14:36] VITALS: BP 116/57; PULSE 69
[2020-04-15] MEDS ORDERED: Diphtheria,Pertussis(Acell),Tetanus Vaccine 0.5 ML Syringe IM ONE (14:43)
== END 2020-04-15 15:00 | disposition home or self-care (01) ==
LOC: VM.ED 14:17
DX: S81.811A Laceration without foreign body, right lower leg, initial encounter (principal); K21.9 Gastro-esophageal reflux disease without esophagitis; I11.0 Hypertensive heart disease with heart failure; I50.9 Heart failure, unspecified; M19.90 Unspecified osteoarthritis, unspecified site; E11.40 Type 2 diabetes mellitus with diabetic neuropathy, unspecified; E66.9 Obesity, unspecified; F41.9 Anxiety disorder, unspecified; F32.9 Major depressive disorder, single episode, unspecified; Z68.39 Body mass index [BMI] 39.0-39.9, adult; Z88.5 Allergy status to narcotic agent; Z88.2 Allergy status to sulfonamides; Z88.4 Allergy status to anesthetic agent; Z79.899 Other long term (current) drug therapy; Z79.82 Long term (current) use of aspirin; Z23 Encounter for immunization; W22.8XXA Striking against or struck by other objects, initial encounter
CPT/HCPCS: 12001; 12002; 90471; 90715; 99283; J2001

== ENCOUNTER 2022-09-01 15:42 | Emergency (ER) | payer MEDICARE, OTHER, MEDICAID ==
[2022-09-01 16:07] VITALS: BP 125/53; PULSE 88
== END 2022-09-01 16:45 | disposition home or self-care (01) ==
LOC: VM.ED 15:42
DX: S30.810A Abrasion of lower back and pelvis, initial encounter (principal); I10 Essential (primary) hypertension; E11.9 Type 2 diabetes mellitus without complications; Z88.5 Allergy status to narcotic agent; Z88.2 Allergy status to sulfonamides; Z88.6 Allergy status to analgesic agent; Z88.8 Allergy status to other drugs, medicaments and biological substances; Z79.899 Other long term (current) drug therapy; Z79.84 Long term (current) use of oral hypoglycemic drugs; Z90.49 Acquired absence of other specified parts of digestive tract; W19.XXXA Unspecified fall, initial encounter
CPT/HCPCS: 99283

== ENCOUNTER 2024-10-05 18:39 | Inpatient (IN) | payer MEDICARE, MEDICAID ==
[2024-10-05] MEDS ORDERED: Sodium Chloride 0.9% 10 ML Syringe FLUSH PRN (18:48)
[2024-10-05 19:26] LABS: BASOPHILS PERCENT AUTO 0.1 % (0.2-1.2); EOSINOPHILS ABSOLUTE AUTO 0.1 x10^3/uL (0.0-0.5); EOSINOPHILS PERCENT AUTO 1.4 % (0.0-4.0); HEMOGLOBIN 14.2 g/dL (12.0-16.0); IMMATURE GRAN ABSOLUTE AUTO 0.02 x10^3/uL (0.00-0.07); LYMPHOCYTES ABSOLUTE AUTO 1.9 x10^3/uL (1.0-4.8); MEAN CORPUSCULAR HEMOGLOBIN 32.2 pg (26.0-32.0); MEAN CORPUSCULAR HGB CONC 31.6 g/dL (32.0-36.0); MONOCYTES ABSOLUTE AUTO 0.6 x10^3/uL (0.0-0.8); MONOCYTES PERCENT AUTO 6.1 % (2.0-11.0); NEUTROPHILS ABSOLUTE AUTO 6.7 x10^3/uL (1.8-7.7); NEUTROPHILS PERCENT AUTO 72.2 % (50.0-80.0); PLATELET COUNT,PLT 360 x10^3/uL (130-400); RED BLOOD CELL COUNT 4.41 x10^6/uL (4.00-5.50); WHITE BLOOD CELL COUNT,WBC 9.3 x10^3/uL (4.0-10.0)
[2024-10-05 19:45] LABS: APPEARANCE,URINE SLIGHTLY CLOUDY (CLEAR); BILIRUBIN,URINE NEGATIVE (NEGATIVE); COLOR,URINE YELLOW (YELLOW); GLUCOSE,URINE NEGATIVE (NEGATIVE); KETONES,URINE NEGATIVE (NEGATIVE); LEUKOCYTE ESTERASE,URINE NEGATIVE (NEGATIVE); NITRITE,URINE POSITIVE (NEGATIVE); OCCULT BLOOD,URINE NEGATIVE (NEGATIVE); PH,URINE 5.5 (5.0-8.0); PROTEIN,URINE NEGATIVE (NEGATIVE); UROBILINOGEN,URINE 0.2 EU/dL (0.2)
[2024-10-05 19:47] LABS: BLOOD UREA NITROGEN,BUN 29 mg/dL (7-18); CARBON DIOXIDE,CO2 35 mmol/L (21-32); CHLORIDE,CL 103 mmol/L (98-107); CREATININE 1.7 mg/dL (0.55-1.02); GLUCOSE RANDOM 155 mg/dL (70-99); PROTEIN TOTAL,TP 6.8 g/dL (6.4-8.2); SODIUM,NA 144 mmol/L (136-145)
[2024-10-05 19:48] LABS: A/G RATIO 0.79; ALANINE AMINOTRANSFERASE,ALT 14 U/L (14-59); ALKALINE PHOSPHATASE 138 U/L (46-116); ASPARTATE AMNIOTRANSFERASE,AST 24 U/L (15-37); BILIRUBIN TOTAL 0.3 mg/dL (0.2-1.0); C-REACTIVE PROTEIN 2.43 mg/dL (<=0.50); ESTIMATED GFR 30 mL/min (>=60); LIPASE 40 U/L (19-71); PRO B-TYPE NATRIUR PEPT,BNPPRO 1890 pg/mL (<=450)
[2024-10-05 19:51] LABS: RBC,URINE 0-5 /HPF (NOT SEEN); SQUAMOUS EPITHELIAL CELLS,UR FEW /HPF (NOT SEEN); WBC,URINE 0-5 /HPF (NOT SEEN)
[2024-10-05 19:52] LABS: BACTERIA,URINE MODERATE /HPF (NOT SEEN); MUCUS,URINE FEW /LPF (NOT SEEN)
[2024-10-05] MEDS: cefTRIAXone 2 GM Vial IVPUSH ONE (20:15)
[2024-10-05] MEDS ORDERED: Ondansetron 4 MG Tab.DIS PO PRN (23:26)
[2024-10-05] MEDS ORDERED: Melatonin 3 MG Tab PO PRN (23:26)
[2024-10-06] MEDS: Acetaminophen 500 MG Tab PO SCH (03:55)
[2024-10-06] MEDS: Omeprazole 20 MG Cap.CR PO SCH (06:04)
[2024-10-06 07:13] LABS: BASOPHILS PERCENT AUTO 0.1 % (0.2-1.2); EOSINOPHILS ABSOLUTE AUTO 0.2 x10^3/uL (0.0-0.5); EOSINOPHILS PERCENT AUTO 1.4 % (0.0-4.0); HEMOGLOBIN 15.3 g/dL (12.0-16.0); IMMATURE GRAN ABSOLUTE AUTO 0.01 x10^3/uL (0.00-0.07); LYMPHOCYTES ABSOLUTE AUTO 2.4 x10^3/uL (1.0-4.8); LYMPHOCYTES PERCENT AUTO 22.2 % (25.0-50.0); MEAN CORPUSCULAR HEMOGLOBIN 31.5 pg (26.0-32.0); MEAN CORPUSCULAR HGB CONC 31.2 g/dL (32.0-36.0); MEAN CORPUSCULAR VOLUME 100.8 fL (78.0-93.0); MONOCYTES ABSOLUTE AUTO 0.7 x10^3/uL (0.0-0.8); MONOCYTES PERCENT AUTO 6.5 % (2.0-11.0); NEUTROPHILS ABSOLUTE AUTO 7.5 x10^3/uL (1.8-7.7); NEUTROPHILS PERCENT AUTO 69.7 % (50.0-80.0); PLATELET COUNT,PLT 294 x10^3/uL (130-400); RED BLOOD CELL COUNT 4.86 x10^6/uL (4.00-5.50); WHITE BLOOD CELL COUNT,WBC 10.7 x10^3/uL (4.0-10.0)
[2024-10-06 07:28] LABS: CALCIUM 9.5 mg/dL (8.5-10.1); CREATININE 1.3 mg/dL (0.55-1.02); EST CRCL DRUG DOSING (CG) 25.61 mL/min; POTASSIUM,K 4.4 mmol/L (3.5-5.1)
[2024-10-06 07:29] LABS: ANION GAP 11.4 mmol/L (5-15)
[2024-10-06] MEDS: Aspirin 81 MG Tab.Chew PO SCH (08:23)
[2024-10-06] MEDS: Gabapentin 100 MG Cap PO SCH (08:23)
[2024-10-06] MEDS: Nortriptyline 10 MG Cap PO SCH (08:23)
[2024-10-06] MEDS: Magnesium Oxide 400 MG Tab PO SCH (08:23)
[2024-10-06] MEDS: Calcium Citrate/Vitamin D3 315 MG-250 Unit Tab PO SCH (08:23)
[2024-10-06] MEDS: Azithromycin 250 MG Tab PO SCH (08:23)
[2024-10-06] MEDS: cefTRIAXone 1 GM Vial IVPUSH SCH (08:23)
[2024-10-06] MEDS: Ferrous Sulfate 325 MG Tab PO SCH (08:23)
[2024-10-06] MEDS: Sennosides 8.6 MG Tab PO SCH ×2 (08:23→14:09)
[2024-10-06] MEDS: Diltiazem IR 60 MG Tab PO SCH (08:24)
[2024-10-06] MEDS: DULoxetine 60 MG Cap PO SCH (08:24)
[2024-10-06] MEDS: Furosemide 40 MG Tab PO SCH (08:24)
[2024-10-06] MEDS: Cyanocobalamin (Vitamin B12) 1,000 MCG Tab PO SCH (08:24)
[2024-10-06] MEDS: Metoprolol Succinate 25 MG Tab.ER PO SCH (08:25)
[2024-10-06] MEDS: Iopamidol 755 Mg/ML 100 ML Bottle IVPUSH ONE (11:51)
[2024-10-06] MEDS: Iopamidol 612 MG/ML 30 ML SDV PO ONE (11:52)
[2024-10-06] MEDS: Furosemide 20 MG/2 ML VIAL IV ONE ×2 (18:13→18:24)
[2024-10-06] MEDS: Enoxaparin 30 MG/0.3 ML Syringe SUBCUT SCH (18:21)
[2024-10-06] MEDS: Carbidopa/Levodopa 25-100 MG Tab.ER PO SCH (21:17)
[2024-10-06] MEDS: Melatonin 3 MG Tab PO SCH (21:18)
[2024-10-06] MEDS: rOPINIRole 0.5 MG Tab PO SCH (21:18)
[2024-10-07 07:19] LABS: BASOPHILS PERCENT AUTO 0.3 % (0.2-1.2); EOSINOPHILS ABSOLUTE AUTO 0.2 x10^3/uL (0.0-0.5); EOSINOPHILS PERCENT AUTO 2.2 % (0.0-4.0); HEMATOCRIT 40.2 % (33.0-47.0); HEMOGLOBIN 12.9 g/dL (12.0-16.0); IMMATURE GRAN ABSOLUTE AUTO 0.02 x10^3/uL (0.00-0.07); LYMPHOCYTES ABSOLUTE AUTO 1.1 x10^3/uL (1.0-4.8); LYMPHOCYTES PERCENT AUTO 14.8 % (25.0-50.0); MEAN CORPUSCULAR HEMOGLOBIN 32.4 pg (26.0-32.0); MEAN CORPUSCULAR HGB CONC 32.1 g/dL (32.0-36.0); MONOCYTES ABSOLUTE AUTO 0.5 x10^3/uL (0.0-0.8); MONOCYTES PERCENT AUTO 6.9 % (2.0-11.0); NEUTROPHILS ABSOLUTE AUTO 5.8 x10^3/uL (1.8-7.7); NEUTROPHILS PERCENT AUTO 75.5 % (50.0-80.0); PLATELET COUNT,PLT 302 x10^3/uL (130-400); RED BLOOD CELL COUNT 3.98 x10^6/uL (4.00-5.50); WHITE BLOOD CELL COUNT,WBC 7.6 x10^3/uL (4.0-10.0)
[2024-10-07 07:44] LABS: A/G RATIO 0.79; ALBUMIN 2.7 g/dL (3.4-5.0); BILIRUBIN TOTAL 0.4 mg/dL (0.2-1.0); CALCIUM 9.9 mg/dL (8.5-10.1); CREATININE 1.3 mg/dL (0.55-1.02); EST CRCL DRUG DOSING (CG) 25.61 mL/min; POTASSIUM,K 4.4 mmol/L (3.5-5.1); PROTEIN TOTAL,TP 6.1 g/dL (6.4-8.2)
[2024-10-07 07:50] LABS: ANION GAP 10.4 mmol/L (5-15)
[2024-10-07] MEDS: Furosemide 40 MG/4 ML VIAL IV SCH (08:42)
[2024-10-07] MEDS: Bisacodyl 5 MG Tab PO SCH (11:28)
[2024-10-07] MEDS: Ciprofloxacin 250 MG Tab PO SCH (11:28)
[2024-10-07] MEDS: Bisacodyl 10 MG Supp RECTAL ONE (11:29)
[2024-10-07] MEDS: Polyethylene Glycol 3350 Powder 17 GM Packet PO SCH (11:29)
[2024-10-08 08:16] LABS: BASOPHILS PERCENT AUTO 0.2 % (0.2-1.2); EOSINOPHILS ABSOLUTE AUTO 0.2 x10^3/uL (0.0-0.5); EOSINOPHILS PERCENT AUTO 3.2 % (0.0-4.0); HEMATOCRIT 39.2 % (33.0-47.0); HEMOGLOBIN 12.1 g/dL (12.0-16.0); LYMPHOCYTES ABSOLUTE AUTO 1.4 x10^3/uL (1.0-4.8); LYMPHOCYTES PERCENT AUTO 21.6 % (25.0-50.0); MEAN CORPUSCULAR HEMOGLOBIN 31.7 pg (26.0-32.0); MEAN CORPUSCULAR HGB CONC 30.9 g/dL (32.0-36.0); MEAN CORPUSCULAR VOLUME 102.6 fL (78.0-93.0); MONOCYTES ABSOLUTE AUTO 0.5 x10^3/uL (0.0-0.8); MONOCYTES PERCENT AUTO 8.4 % (2.0-11.0); NEUTROPHILS ABSOLUTE AUTO 4.2 x10^3/uL (1.8-7.7); NEUTROPHILS PERCENT AUTO 66.6 % (50.0-80.0); PLATELET COUNT,PLT 292 x10^3/uL (130-400); RED BLOOD CELL COUNT 3.82 x10^6/uL (4.00-5.50); WHITE BLOOD CELL COUNT,WBC 6.3 x10^3/uL (4.0-10.0)
[2024-10-08 08:28] LABS: CALCIUM 9.4 mg/dL (8.5-10.1); CREATININE 1.1 mg/dL (0.55-1.02); EST CRCL DRUG DOSING (CG) 30.27 mL/min; POTASSIUM,K 4.3 mmol/L (3.5-5.1)
[2024-10-08 08:33] LABS: ANION GAP 9.3 mmol/L (5-15)
[2024-10-09 08:02] LABS: BASOPHILS PERCENT AUTO 0.2 % (0.2-1.2); EOSINOPHILS ABSOLUTE AUTO 0.2 x10^3/uL (0.0-0.5); EOSINOPHILS PERCENT AUTO 2.6 % (0.0-4.0); HEMATOCRIT 37.8 % (33.0-47.0); HEMOGLOBIN 11.9 g/dL (12.0-16.0); LYMPHOCYTES ABSOLUTE AUTO 1.3 x10^3/uL (1.0-4.8); LYMPHOCYTES PERCENT AUTO 20.8 % (25.0-50.0); MEAN CORPUSCULAR HEMOGLOBIN 32.2 pg (26.0-32.0); MEAN CORPUSCULAR HGB CONC 31.5 g/dL (32.0-36.0); MEAN CORPUSCULAR VOLUME 102.4 fL (78.0-93.0); MONOCYTES ABSOLUTE AUTO 0.6 x10^3/uL (0.0-0.8); MONOCYTES PERCENT AUTO 10.4 % (2.0-11.0); PLATELET COUNT,PLT 282 x10^3/uL (130-400); RED BLOOD CELL COUNT 3.69 x10^6/uL (4.00-5.50); WHITE BLOOD CELL COUNT,WBC 6.1 x10^3/uL (4.0-10.0)
[2024-10-09 08:24] LABS: A/G RATIO 0.73; ALBUMIN 2.4 g/dL (3.4-5.0); BILIRUBIN TOTAL 0.5 mg/dL (0.2-1.0); CALCIUM 9.5 mg/dL (8.5-10.1); CREATININE 1.1 mg/dL (0.55-1.02); EST CRCL DRUG DOSING (CG) 30.27 mL/min; POTASSIUM,K 4.6 mmol/L (3.5-5.1); PROTEIN TOTAL,TP 5.7 g/dL (6.4-8.2)
[2024-10-09 08:28] LABS: ANION GAP 8.6 mmol/L (5-15)
[2024-10-10] MEDS: Furosemide 100 MG/10 ML SDV IV SCH (09:50)
[2024-10-10] MEDS: metroNIDAZOLE 500 MG Tab PO SCH (09:50)
[2024-10-10] MEDS: Doxycycline Monohydrate 100 MG Cap PO SCH (09:51)
[2024-10-10] MEDS: metFORMIN 500 MG Tab PO SCH (09:56)
[2024-10-11 06:56] LABS: BASOPHILS PERCENT AUTO 0.2 % (0.2-1.2); EOSINOPHILS ABSOLUTE AUTO 0.1 x10^3/uL (0.0-0.5); EOSINOPHILS PERCENT AUTO 1.7 % (0.0-4.0); HEMATOCRIT 39.3 % (33.0-47.0); HEMOGLOBIN 12.4 g/dL (12.0-16.0); IMMATURE GRAN ABSOLUTE AUTO 0.01 x10^3/uL (0.00-0.07); LYMPHOCYTES ABSOLUTE AUTO 1.5 x10^3/uL (1.0-4.8); LYMPHOCYTES PERCENT AUTO 23.3 % (25.0-50.0); MEAN CORPUSCULAR HEMOGLOBIN 31.9 pg (26.0-32.0); MEAN CORPUSCULAR HGB CONC 31.6 g/dL (32.0-36.0); MONOCYTES ABSOLUTE AUTO 0.6 x10^3/uL (0.0-0.8); MONOCYTES PERCENT AUTO 8.4 % (2.0-11.0); NEUTROPHILS ABSOLUTE AUTO 4.3 x10^3/uL (1.8-7.7); NEUTROPHILS PERCENT AUTO 66.2 % (50.0-80.0); PLATELET COUNT,PLT 245 x10^3/uL (130-400); RED BLOOD CELL COUNT 3.89 x10^6/uL (4.00-5.50); WHITE BLOOD CELL COUNT,WBC 6.5 x10^3/uL (4.0-10.0)
[2024-10-11 07:17] LABS: A/G RATIO 0.71; ALBUMIN 2.5 g/dL (3.4-5.0); BILIRUBIN TOTAL 0.5 mg/dL (0.2-1.0); CALCIUM 9.8 mg/dL (8.5-10.1); CREATININE 1.1 mg/dL (0.55-1.02); EST CRCL DRUG DOSING (CG) 30.27 mL/min; POTASSIUM,K 4.5 mmol/L (3.5-5.1)
[2024-10-11 07:21] LABS: ANION GAP 9.5 mmol/L (5-15)
[2024-10-11 08:50] VITALS: BP 127/88; PULSE 80
== END 2024-10-11 09:45 | DRG 177 ==
LOC: VM.ED 18:39 → VM.MS 21:10
PROVIDERS: ADMIT Family Medicine; ATTEND Internal Medicine
DX: J90 Pleural effusion, not elsewhere classified (principal); J15.212 Pneumonia due to Methicillin resistant Staphylococcus aureus; K59.00 Constipation, unspecified; I50.33 Acute on chronic diastolic (congestive) heart failure; I11.0 Hypertensive heart disease with heart failure; I50.9 Heart failure, unspecified; J96.01 Acute respiratory failure with hypoxia; N39.0 Urinary tract infection, site not specified; I13.0 Hypertensive heart and chronic kidney disease with heart failure and stage 1 through stage 4 chronic kidney disease, or unspecified chronic kidney disease; B96.29 Other Escherichia coli [E. coli] as the cause of diseases classified elsewhere; F41.8 Other specified anxiety disorders; M79.7 Fibromyalgia; E78.00 Pure hypercholesterolemia, unspecified; Z88.1 Allergy status to other antibiotic agents; J30.9 Allergic rhinitis, unspecified; K59.09 Other constipation; Z90.710 Acquired absence of both cervix and uterus; K21.9 Gastro-esophageal reflux disease without esophagitis; M19.90 Unspecified osteoarthritis, unspecified site; E66.9 Obesity, unspecified; Z96.649 Presence of unspecified artificial hip joint; Z96.659 Presence of unspecified artificial knee joint; Z96.619 Presence of unspecified artificial shoulder joint; F15.90 Other stimulant use, unspecified, uncomplicated; R79.89 Other specified abnormal findings of blood chemistry; E11.42 Type 2 diabetes mellitus with diabetic polyneuropathy; N18.32 Chronic kidney disease, stage 3b; G25.81 Restless legs syndrome; Z88.5 Allergy status to narcotic agent; Z88.2 Allergy status to sulfonamides; Z88.8 Allergy status to other drugs, medicaments and biological substances; Z87.81 Personal history of (healed) traumatic fracture; Z98.49 Cataract extraction status, unspecified eye; Z98.890 Other specified postprocedural states; Z79.84 Long term (current) use of oral hypoglycemic drugs; Z79.82 Long term (current) use of aspirin; Z79.1 Long term (current) use of non-steroidal anti-inflammatories (NSAID); Z79.899 Other long term (current) drug therapy
CPT/HCPCS: 36415; 51798; 71046; 71275; 74022; 74177; 80048; 80053; 81001; 82947; 83690; 83880; 84484; 85025; 85379; 86140; 87070; 87086; 87088; 87186; 94760; 96374; 97161-GP; 99223; 99223-GT; 99232; 99284; 99285-25; A9270-GY; J0696; J1650; J1940; Q9967

== ENCOUNTER 2024-11-12 15:24 | Emergency (ER) | payer MEDICARE, MEDICAID ==
[2024-11-12] MEDS ORDERED: Sodium Chloride 0.9% 10 ML Syringe FLUSH PRN (15:34)
[2024-11-12 15:44] LABS: BASOPHILS PERCENT AUTO 0.1 % (0.2-1.2); EOSINOPHILS ABSOLUTE AUTO 0.1 x10^3/uL (0.0-0.5); EOSINOPHILS PERCENT AUTO 0.9 % (0.0-4.0); HEMATOCRIT 39.8 % (33.0-47.0); HEMOGLOBIN 12.6 g/dL (12.0-16.0); IMMATURE GRAN ABSOLUTE AUTO 0.02 x10^3/uL (0.00-0.07); LYMPHOCYTES ABSOLUTE AUTO 1.4 x10^3/uL (1.0-4.8); LYMPHOCYTES PERCENT AUTO 16.5 % (25.0-50.0); MEAN CORPUSCULAR HGB CONC 31.7 g/dL (32.0-36.0); MONOCYTES ABSOLUTE AUTO 0.7 x10^3/uL (0.0-0.8); MONOCYTES PERCENT AUTO 8.5 % (2.0-11.0); NEUTROPHILS ABSOLUTE AUTO 6.2 x10^3/uL (1.8-7.7); NEUTROPHILS PERCENT AUTO 73.8 % (50.0-80.0); PLATELET COUNT,PLT 325 x10^3/uL (130-400); RED BLOOD CELL COUNT 3.94 x10^6/uL (4.00-5.50); WHITE BLOOD CELL COUNT,WBC 8.5 x10^3/uL (4.0-10.0)
[2024-11-12 16:00] LABS: A/G RATIO 0.73; ALANINE AMINOTRANSFERASE,ALT 10 U/L (14-59); ALBUMIN 2.7 g/dL (3.4-5.0); ALKALINE PHOSPHATASE 152 U/L (46-116); ASPARTATE AMNIOTRANSFERASE,AST 21 U/L (15-37); BILIRUBIN TOTAL 0.3 mg/dL (0.2-1.0); BLOOD UREA NITROGEN,BUN 33 mg/dL (7-18); CALCIUM 9.4 mg/dL (8.5-10.1); CARBON DIOXIDE,CO2 32 mmol/L (21-32); CHLORIDE,CL 100 mmol/L (98-107); CREATININE 1.9 mg/dL (0.55-1.02); GLUCOSE RANDOM 126 mg/dL (70-99); POTASSIUM,K 4.7 mmol/L (3.5-5.1); PROTEIN TOTAL,TP 6.4 g/dL (6.4-8.2); SODIUM,NA 140 mmol/L (136-145)
[2024-11-12 16:01] LABS: ANION GAP 12.7 mmol/L (5-15); ESTIMATED GFR 26 mL/min (>=60)
[2024-11-12] MEDS ORDERED: Lidocaine 1% 30 ML SDV INJECT ONE (16:17)
[2024-11-12] MEDS: fentaNYL 50 MCG/ML SDV IVPUSH ONE (16:27)
[2024-11-12 20:23] VITALS: BP 146/85; PULSE 122
== END 2024-11-12 17:22 | disposition short-term general hospital (02) ==
LOC: VM.ED 15:24
DX: S12.030A Displaced posterior arch fracture of first cervical vertebra, initial encounter for closed fracture (principal); T84.011A Broken internal left hip prosthesis, initial encounter; S01.81XA Laceration without foreign body of other part of head, initial encounter; I13.0 Hypertensive heart and chronic kidney disease with heart failure and stage 1 through stage 4 chronic kidney disease, or unspecified chronic kidney disease; I50.9 Heart failure, unspecified; N18.32 Chronic kidney disease, stage 3b; E78.00 Pure hypercholesterolemia, unspecified; E11.40 Type 2 diabetes mellitus with diabetic neuropathy, unspecified; E11.22 Type 2 diabetes mellitus with diabetic chronic kidney disease; Z88.5 Allergy status to narcotic agent; Z88.8 Allergy status to other drugs, medicaments and biological substances; Z88.2 Allergy status to sulfonamides; Z79.84 Long term (current) use of oral hypoglycemic drugs; Z79.899 Other long term (current) drug therapy; W18.39XA Other fall on same level, initial encounter; Y93.89 Activity, other specified
CPT/HCPCS: 12013; 36415; 70450; 71045; 72125; 73502; 73630; 80053; 85025; 96374; 99285; J3010